=== PATIENT | female | born 1950 | race Caucasian/White ===

== ENCOUNTER 2022-11-05 11:52 | Inpatient (IN) | payer MEDICARE, OTHER ==
[2022-11-05] MEDS ORDERED: Aplisol ID ONE (14:46)
--- NOTE | 2022-11-05 18:34 | PCM.HP ---
History of Present Illness - Chief Complaint Chief Complaint: DECONDITIONING R/T CVA History of Present Illness: is a 72 year old female patient transfered from [facility] S/P acute CVA initially with dysarthria and left sided hemiparesis. Symptoms reversed with TNKase but patient had anaphylactic reaction .PMHx includes HTN,CAD,DM2,asthma,anemia,PFO. Patient will benefit from Rehab stay. - Review of Systems Constitutional: Fatigue, Weakness Eyes: No Symptoms Ears, Nose, & Throat: Hoarse (S/P anaphylactic reaction) Respiratory: Wheezing (asthma ,uses albuterol neb treatments at home regularly) Cardiac: No Symptoms Abdominal/Gastrointestinal: No Symptoms Genitourinary Symptoms: No Symptoms Musculoskeletal: Arthralgias Skin: No Symptoms Neurological: Other (residual weakness left sided) Psychological: No Symptoms, Depression Endocrine: No Symptoms Hematologic/Lymphatic: Anemia Medications & Allergies Home Medications: Home Medication List Albuterol 2.5 mg/3 ml Neb [Proventil 2.5 mg/3 ml Neb] 2.5 mg IH QID 11/05/22 [History Confirmed 11/05/22] Albuterol Common Canister [Ventolin Common Canister] 2 puff IH QIDPRN PRN 11/05/22 [History Confirmed 11/05/22] Aspirin 81 gm Chew [Baby Aspirin 81 mg Chew] 81 mg PO DAILY 11/05/22 [History Confirmed 11/05/22] Atorvastatin Calcium [Lipitor 40Mg] 40 mg PO HS 11/05/22 [History Confirmed 11/05/22] Clopidogrel Bisulfate [PLAVIX Tablet] 75 mg PO DAILY 11/05/22 [History Confirmed 11/05/22] Clopidogrel Bisulfate [Plavix] 75 mg PO DAILY 11/05/22 [History Confirmed 11/05/22] Escitalopram Oxalate [Lexapro] 10 mg PO DAILY 11/05/22 [History Confirmed 11/05/22] Fluticasone/Umeclidin/Vilanter [Trelegy Ellipta 100-62.5-25] 1 each IH DAILY 11/05/22 [History Confirmed 11/05/22] Insulin Glargine [Lantus Insulin] 35 unit SQ HS 11/05/22 [History Confirmed 11/05/22] Insulin Lispro [Humalog] 1 unit SQ ACHS 11/05/22 [History Confirmed 11/05/22] Metformin HCl 500 mg [Glucophage 500 MG] 1,000 mg PO BIDWM 11/05/22 [History Confirmed 11/05/22] Metoprolol Tartrate 25 mg [Lopressor 25MG Tab] 25 mg PO BID 11/05/22 [History Confirmed 11/05/22] Ubidecarenone [Coenzyme Q10] 200 mg PO DAILY 11/05/22 [History Confirmed 11/05/22] metOLazone [Metolazone] 2.5 mg PO WEEKLY 11/05/22 [History Confirmed 11/05/22] predniSONE [Prednisone] 10 mg PO DAILY 11/05/22 [History Confirmed 11/05/22] Amlodipine Besylate 5 mg [Norvasc 5 mg] 10 mg PO DAILY 11/06/22 [History Confirmed 11/06/22] Allergies/Adverse Reactions: Allergies Allergy/AdvReac Type Severity Reaction Status Date / Time lisinopril Allergy Severe Swelling Verified 11/05/22 22:40 of Face tenecteplase Allergy Swelling Verified 11/05/22 22:40 of Face ciprofloxacin [From Cipro] AdvReac Verified 11/05/22 22:40 - Past Medical History Neurological History: Stroke ENT History: Other (sinusitis) Cardiac History: Hypertension Respiratory History: Asthma Endocrine Medical History: Diabetes Type II Musculoskelatal History: Arthritis History: No Pertinent History - Physical Exam Vital Signs: Vital Signs - 24 hr Temp Pulse Resp BP Pulse Ox 11/05/22 17:42 98.0 F 68 18 194/77 96 11/05/22 17:00 98.0 F 68 18 194/77 96 General Appearance: no apparent distress Neurologic Exam: alert, oriented x 3, cooperative, No normal mood/affect Eye Exam: PERRL/EOMI, eyes nml inspection Ears, Nose, Throat Exam: moist mucous membranes, other (mild nasal congestion) Neck Exam: normal inspection Respiratory Exam: wheezing (scattered few eew) Gastrointestinal/Abdomen Exam: soft, normal bowel sounds (nontender) Pelvic Exam: not done Rectal Exam: not done Back Exam: other (no point tenderness) Extremity Exam: other (trace ankle edema calves soft nontender) Skin Exam: warm, dry, pale Results - Other Procedures and Tests Respiratory Therapy 11/05/22 17:45 Oxygen Nasal Cannula 3 lpm 11/06/22 07:00 Respiratory MDI ONCE Assessment/Plan (1) CVA (cerebral vascular accident) Current Visit: Yes Status: Resolved Qualifiers: Laterality of affected vessel: right Assessment & Plan: left hemiparesisi,mild residual Code(s): I63.9 - CEREBRAL INFARCTION, UNSPECIFIED (2) DM2 (diabetes mellitus, type 2) Current Visit: Yes Status: Chronic Qualifiers: Diabetes mellitus usp insulin use: with usp use (3) PFO (patent foramen ovale) Current Visit: Yes Status: Chronic Assessment & Plan: see [facility] Code(s): Q21.12 - PATENT FORAMEN OVALE (4) Anemia Current Visit: Yes Status: Acute Code(s): D64.9 - ANEMIA, UNSPECIFIED (5) HTN (hypertension) Current Visit: Yes Status: Chronic Assessment & Plan: Lisinopril was stopped after anaphylactic reaction during administration of TNKase Code(s): I10 - ESSENTIAL (PRIMARY) HYPERTENSION
[2022-11-05] MEDS ORDERED: PATIENT OWN MEDICATION IH SCH (19:00)
[2022-11-05] MEDS ORDERED: PROVENTIL 2.5 MG/3 ML NEB IH ONE (19:48)
[2022-11-05] MEDS: PROVENTIL 2.5 MG/3 ML NEB IH SCH ×2 (19:57→23:50)
[2022-11-05] MEDS: Mucinex 600MG ER Tabs PO SCH (21:26)
[2022-11-05] MEDS: Lantus Insulin SQ SCH (23:47)
[2022-11-05] MEDS: Lopressor 25MG Tab PO SCH (23:47)
[2022-11-06] MEDS ORDERED: DUONEB 0.5-3 MG/3 ml Neb IH ONE (03:39)
[2022-11-06] MEDS: PROVENTIL 2.5 MG/3 ML NEB IH SCH ×6 (04:03→22:56)
[2022-11-06] MEDS ORDERED: PROVENTIL 2.5 MG/3 ML NEB IH SCH (07:00)
[2022-11-06] MEDS ORDERED: VENTOLIN COMMON CANISTER IH SCH (07:00)
[2022-11-06] MEDS: PATIENT OWN MEDICATION IH SCH (07:23)
[2022-11-06] MEDS ORDERED: VENTOLIN COMMON CANISTER IH PRN (07:47)
[2022-11-06] MEDS ORDERED: MEDICATION INTERVENTION MC SCH (08:00)
[2022-11-06] MEDS: ECOTRIN 81 MG PO SCH (09:04)
[2022-11-06] MEDS: Lopressor 25MG Tab PO SCH ×2 (09:04→21:46)
[2022-11-06] MEDS: Mucinex 600MG ER Tabs PO SCH ×2 (09:04→21:46)
[2022-11-06] MEDS: PLAVIX Tablet PO SCH (09:04)
[2022-11-06] MEDS: Lexapro PO SCH (09:07)
[2022-11-06] MEDS: Glucophage 500 MG PO SCH ×2 (09:32→17:50)
[2022-11-06] MEDS ORDERED: UBIDECARENONE 200 MG PO SCH (10:00)
[2022-11-06] MEDS ORDERED: BABY ASPIRIN 81 MG CHEW PO SCH (10:00)
[2022-11-06] MEDS ORDERED: DELTASONE 10 MG PO SCH ×2 (10:00)
[2022-11-06] MEDS ORDERED: CEPACOL SORE THROAT LOZENGE PO PRN (12:28)
[2022-11-06] MEDS: IMODIUM 2 MG PO PRN (17:47)
[2022-11-06] MEDS: ZOCOR 20MG PO SCH (21:46)
[2022-11-06] MEDS: Lantus Insulin SQ SCH (21:47)
[2022-11-06] MEDS ORDERED: LIPITOR 40MG PO SCH (22:00)
[2022-11-06] MEDS ORDERED: Klor Con PO SCH (22:00)
[2022-11-06] MEDS: TYLENOL 325 MG PO PRN (22:28)
[2022-11-07] MEDS: PROVENTIL 2.5 MG/3 ML NEB IH SCH ×6 (03:58→23:44)
[2022-11-07 05:36] LABS: Absolute Neutrophil Ct (ANC) 9.71 x10^3/uL (1.4-6.9); BASOPHIL % 0.1 % (0.0-0.4); Basophil (Absolute #) 0.01 x10^3/uL (0-0.4); Eosinophil % 0.5 % (0.00-5.0); Eosinophil (Absolute #) 0.06 x10^3/uL (0-0.5); Hematocrit 29.5 % (35-47); Hemoglobin 8.8 g/dL (12.0-16.0); IMMATURE GRAN # 0.11 x10^3u/L (0.00-0.03); IMMATURE GRAN % 0.8 % (0.00-0.4); Lymphocyte (Absolute #) 2.43 x10^3/uL (1.0-4.6); Lymphocytes % 18.3 % (24.0-44.0); Mean Cell Volume 83.6 fL (78-100); Mean Corpuscular Hemoglobin 24.9 pg (26-32); Mean Corpuscular Hgb Concent. 29.8 g/dL (32-36); Mean Platelet Volume 11.8 fL (7.5-11.0); Monocyte (Absolute #) 0.93 x10^3/uL (0.0-1.3); Neutrophil % 73.3 % (36.0-66.0); Platelet Count 281 x10^3/uL (150-450); Red Blood Count 3.53 x10^6/uL (4.1-5.4); Red Cell Distribution Width 16.2 % (11.5-14.0); White Blood Count 13.3 x10^3/uL (4.0-10.5)
[2022-11-07 06:21] LABS: ALBUMIN 3.2 g/dL (3.5-5.0); ALKALINE PHOSPHATASE 60 U/L (38-126); ANION GAP 8.5 MEQ/L (5-15); BLOOD UREA NITROGEN 25 mg/dL (7-17); CHLORIDE 102 mmol/L (98-107); Carbon Dioxide 32 mmol/L (22-30); Cholesterol 127 mg/dL (50-200); Creatinine 1 0.95 mg/dL (0.52-1.04); EST GLOMERULAR FILTRATION RATE > 60.0 ML/MIN; Glucose 131 mg/dL (74-106); HDL CHOLESTEROL 42 mg/dL (40-60); LDL, DIRECT 55 mg/dL (30-100); Potassium 3.8 mmol/L (3.5-5.1); SGOT/AST 21 U/L (14-36); SGPT/ALT 40 U/L (0-35); SODIUM 139 mmol/L (137-145); TRIGLYCERIDE 145 mg/dL (30-150); TSH, 3RD Generation 0.361 mIU/L (0.47-4.68)
[2022-11-07] MEDS ORDERED: Klor Con PO ONE ×2 (07:04→10:15)
[2022-11-07] MEDS: PATIENT OWN MEDICATION IH SCH (07:24)
--- NOTE | 2022-11-07 09:59 | XRAY ---
Indication: Coarse wheezing lung sounds. Comparison: August 28, 2022 Portable chest demonstrates new electronic monitoring device overlying left mid chest obscuring previous calcified granuloma. No focal infiltrate, consolidation, or large effusion. Heart not enlarged again with CABG. Bony thorax intact again with osteopenia and mild degenerative changes. Impression: Continued nonacute chest with chronic features.
[2022-11-07] MEDS: Lopressor 25MG Tab PO SCH ×2 (10:02→22:10)
[2022-11-07] MEDS: Mucinex 600MG ER Tabs PO SCH ×2 (10:03→22:10)
[2022-11-07] MEDS: DELTASONE 10 MG PO SCH (10:03)
[2022-11-07] MEDS: ECOTRIN 81 MG PO SCH (10:03)
[2022-11-07] MEDS: PLAVIX Tablet PO SCH (10:03)
[2022-11-07] MEDS: Lasix 40 MG PO SCH (10:03)
[2022-11-07] MEDS: Lexapro PO SCH (10:03)
[2022-11-07] MEDS: TYLENOL 325 MG PO PRN ×2 (10:59→22:10)
[2022-11-07] MEDS: NORVASC 5 MG PO SCH (11:01)
[2022-11-07] MEDS: Glucophage 500 MG PO SCH ×2 (12:26→16:51)
[2022-11-07 15:39] LABS: NT PRO BNPII 9910 pg/mL (<300); Vitamin B12 356 pg/mL (239-931)
[2022-11-07] MEDS: IMODIUM 2 MG PO PRN (18:18)
[2022-11-07] MEDS: Lantus Insulin SQ SCH (22:10)
[2022-11-07] MEDS: ZOCOR 20MG PO SCH (22:10)
[2022-11-08] MEDS: PROVENTIL 2.5 MG/3 ML NEB IH SCH ×6 (03:20→23:12)
[2022-11-08] MEDS: PATIENT OWN MEDICATION IH SCH (06:43)
[2022-11-08] MEDS: TYLENOL 325 MG PO PRN ×2 (09:47→17:18)
[2022-11-08] MEDS: DELTASONE 10 MG PO SCH (09:47)
[2022-11-08] MEDS: Lasix 40 MG PO SCH (09:48)
[2022-11-08] MEDS: NORVASC 5 MG PO SCH (09:48)
[2022-11-08] MEDS: ECOTRIN 81 MG PO SCH (09:48)
[2022-11-08] MEDS: PLAVIX Tablet PO SCH (09:48)
[2022-11-08] MEDS: Mucinex 600MG ER Tabs PO SCH ×2 (09:48→23:20)
[2022-11-08] MEDS: Lexapro PO SCH (09:48)
[2022-11-08] MEDS: Lopressor 25MG Tab PO SCH ×2 (09:48→23:20)
[2022-11-08] MEDS: Glucophage 500 MG PO SCH ×2 (09:48→18:23)
[2022-11-08] MEDS: ZOCOR 20MG PO SCH (23:19)
[2022-11-08] MEDS: Lantus Insulin SQ SCH (23:20)
[2022-11-09] MEDS: PROVENTIL 2.5 MG/3 ML NEB IH SCH ×5 (02:19→22:00)
[2022-11-09] MEDS: PATIENT OWN MEDICATION IH SCH (08:12)
[2022-11-09] MEDS: TYLENOL 325 MG PO PRN ×2 (09:21→15:24)
[2022-11-09] MEDS: DELTASONE 10 MG PO SCH (09:22)
[2022-11-09] MEDS: Lasix 40 MG PO SCH (09:22)
[2022-11-09] MEDS: NORVASC 5 MG PO SCH (09:22)
[2022-11-09] MEDS: Mucinex 600MG ER Tabs PO SCH ×2 (09:22→22:10)
[2022-11-09] MEDS: Lexapro PO SCH (09:23)
[2022-11-09] MEDS: Lopressor 25MG Tab PO SCH ×2 (09:23→22:10)
[2022-11-09] MEDS: PLAVIX Tablet PO SCH (09:23)
[2022-11-09] MEDS: ECOTRIN 81 MG PO SCH (09:23)
[2022-11-09] MEDS: Glucophage 500 MG PO SCH ×2 (09:27→18:46)
[2022-11-09] MEDS ORDERED: Zaroxolyn 2.5 MG PO SCH (10:00)
[2022-11-09] MEDS: HUMALOG SQ PRN ×2 (18:43→22:11)
[2022-11-09] MEDS: ZOCOR 20MG PO SCH (22:10)
[2022-11-09] MEDS: Lantus Insulin SQ SCH (22:11)
[2022-11-10] MEDS ORDERED: DUONEB 0.5-3 MG/3 ml Neb IH SCH (01:00)
[2022-11-10] MEDS: PROVENTIL 2.5 MG/3 ML NEB IH SCH ×3 (07:24→18:38)
[2022-11-10] MEDS: PATIENT OWN MEDICATION IH SCH (07:27)
[2022-11-10] MEDS: Glucophage 500 MG PO SCH ×2 (08:33→17:32)
[2022-11-10] MEDS: TYLENOL 325 MG PO PRN ×2 (08:38→22:51)
[2022-11-10] MEDS: Lexapro PO SCH (09:36)
[2022-11-10] MEDS: Mucinex 600MG ER Tabs PO SCH ×2 (09:36→22:51)
[2022-11-10] MEDS: NORVASC 5 MG PO SCH (09:36)
[2022-11-10] MEDS: Lopressor 25MG Tab PO SCH ×2 (09:36→22:49)
[2022-11-10] MEDS: Lasix 40 MG PO SCH (09:36)
[2022-11-10] MEDS: PLAVIX Tablet PO SCH (09:36)
[2022-11-10] MEDS: ECOTRIN 81 MG PO SCH (09:36)
[2022-11-10] MEDS: DELTASONE 10 MG PO SCH (09:36)
--- NOTE | 2022-11-10 16:59 | PCM.NOTE ---
Date and Time: 11/10/221651 Subjective Assessment: Patient has been walking with staff and has not had dyspnea /wheezing with exertion today. Sugars have been high 441 (family brought hot fudge friday) , low= 59 and 72 - FBS. Will stay on carb controlled diet and off the sweets. Lantus reduced from 35 to 20 units.Sliding scale reduced from moderated to low.. Objective Exam General Appearance: no apparent distress Neurologic Exam: alert, oriented x 3, cooperative, normal mood/affect, nml cerebellar function Skin Exam: warm, dry, pale Respiratory Exam: normal breath sounds (on O2 2L/NC) Cardiovascular Exam: regular rate/rhythm Gastrointestinal/Abdomen Exam: normal bowel sounds Extremity Exam: other (all extremities normally ,has some weakness LLE compared to RLE) OBJECTIVE DATA Vital Signs: Vital Signs - 24 hr Temp Pulse Resp BP Pulse Ox 11/10/22 13:57 77 18 146/65 97 11/10/22 13:31 77 18 96 11/10/22 07:27 68 18 99 11/10/22 07:25 97.6 F 40 L 16 147/60 98 11/09/22 22:02 92 H 18 99 11/09/22 20:00 98.4 F 55 L 18 138/65 93 L 11/09/22 17:58 78 16 96 Pain Assessment - Last Documented Pain Intensity 0 Pain Scale Used 0-10 Pain Scale Intake and Output: Intake & Output 11/08/22 11/09/22 11/10/22 11/11/22 11:59 11:59 11:59 11:59 Intake Total 540 240 340 Balance 540 240 340 Weight 108.4 kg 108.4 kg 108.3 kg Lab Results: Lab Results-Last 24 Hours 11/09/22 11/09/22 11/10/22 Range/Units 18:35 21:22 07:11 POC Glucometer 441 H 376 H 59 L (74 to 106) mg/dL 11/10/22 11/10/22 Range/Units 07:47 16:28 POC Glucometer 106 301 H (74 to 106) mg/dL Assessment/Plan (1) CVA (cerebral vascular accident) Status: Resolved Qualifiers: Laterality of affected vessel: right Code(s): I63.9 - CEREBRAL INFARCTION, UNSPECIFIED (2) DM2 (diabetes mellitus, type 2) Status: Chronic Qualifiers: Diabetes mellitus usp insulin use: with usp use (3) PFO (patent foramen ovale) Status: Chronic Code(s): Q21.12 - PATENT FORAMEN OVALE (4) Anemia Status: Acute Code(s): D64.9 - ANEMIA, UNSPECIFIED (5) HTN (hypertension) Status: Chronic Code(s): I10 - ESSENTIAL (PRIMARY) HYPERTENSION (6) Aneurysm Status: Acute Assessment & Plan: fusiform aneurysm brain-Neurosurgeon appt was jose as outpatient when patient was dischared from [place] with the acute CVA Code(s): I72.9 - ANEURYSM OF UNSPECIFIED SITE
[2022-11-10] MEDS: HUMALOG SQ PRN ×2 (17:32→22:50)
[2022-11-10] MEDS: ZOCOR 20MG PO SCH (22:51)
[2022-11-10] MEDS: Lantus Insulin SQ SCH (22:51)
[2022-11-11] MEDS: PROVENTIL 2.5 MG/3 ML NEB IH SCH ×4 (01:06→19:20)
[2022-11-11] MEDS: PATIENT OWN MEDICATION IH SCH (07:27)
[2022-11-11] MEDS: TYLENOL 325 MG PO PRN ×2 (10:01→21:50)
[2022-11-11] MEDS: Lexapro PO SCH (10:01)
[2022-11-11] MEDS: DELTASONE 10 MG PO SCH (10:01)
[2022-11-11] MEDS: ECOTRIN 81 MG PO SCH (10:01)
[2022-11-11] MEDS: Lasix 40 MG PO SCH (10:01)
[2022-11-11] MEDS: Mucinex 600MG ER Tabs PO SCH ×2 (10:01→21:46)
[2022-11-11] MEDS: Lopressor 25MG Tab PO SCH ×2 (10:02→21:45)
[2022-11-11] MEDS: Glucophage 500 MG PO SCH ×2 (10:02→18:02)
[2022-11-11] MEDS: NORVASC 5 MG PO SCH (10:02)
[2022-11-11] MEDS: PLAVIX Tablet PO SCH (10:02)
[2022-11-11] MEDS: Lantus Insulin SQ SCH (21:45)
[2022-11-11] MEDS: ZOCOR 20MG PO SCH (21:46)
[2022-11-12] MEDS: PROVENTIL 2.5 MG/3 ML NEB IH SCH ×3 (01:00→12:57)
[2022-11-12] MEDS ORDERED: DUONEB 0.5-3 MG/3 ml Neb IH ONE (06:38)
[2022-11-12 07:20] VITALS: BP 153/62; O2SAT 97
[2022-11-12] MEDS: Mucinex 600MG ER Tabs PO SCH (08:49)
[2022-11-12] MEDS: Lopressor 25MG Tab PO SCH (08:50)
[2022-11-12] MEDS: Lasix 40 MG PO SCH (08:51)
[2022-11-12] MEDS: Glucophage 500 MG PO SCH (08:51)
[2022-11-12] MEDS: NORVASC 5 MG PO SCH (08:51)
[2022-11-12] MEDS: ECOTRIN 81 MG PO SCH (08:52)
[2022-11-12] MEDS: DELTASONE 10 MG PO SCH (08:52)
[2022-11-12] MEDS: Lexapro PO SCH (08:53)
[2022-11-12] MEDS: PLAVIX Tablet PO SCH (08:53)
[2022-11-12 13:01] VITALS: PULSE 48
--- NOTE | 2022-11-12 15:58 | PCM.DCORD ---
- Discharge Disposition: Home, Self-Care Condition: Stable Prescriptions: New Amlodipine Besylate 5 mg [Norvasc 5 mg] 10 mg PO DAILY #90 tablet Glipizide 10 mg [Glucotrol 10 MG] 10 mg PO BID #60 tablet Potassium Chloride [Klor-Con 10] 10 meq PO DAILY #90 tablet Furosemide 20 mg [Lasix 20 mg] 0 mg PO DAILY #90 tablet Continue Metformin HCl 500 mg [Glucophage 500 MG] 1,000 mg PO BIDWM Escitalopram Oxalate [Lexapro] 10 mg PO DAILY Clopidogrel Bisulfate [PLAVIX Tablet] 75 mg PO DAILY Aspirin 81 gm Chew [Baby Aspirin 81 mg Chew] 81 mg PO DAILY predniSONE [Prednisone] 10 mg PO DAILY metOLazone [Metolazone] 2.5 mg PO WEEKLY Ubidecarenone [Coenzyme Q10] 200 mg PO DAILY Insulin Lispro [Humalog] 1 unit SQ ACHS Insulin Glargine [Lantus Insulin] 35 unit SQ HS Fluticasone/Umeclidin/Vilanter [Trelegy Ellipta 100-62.5-25] 1 each IH DAILY Albuterol Common Canister [Ventolin Common Canister] 2 puff IH QIDPRN PRN PRN Reason: Shortness Of Breath Albuterol 2.5 mg/3 ml Neb [Proventil 2.5 mg/3 ml Neb] 2.5 mg IH QID Amlodipine Besylate 5 mg [Norvasc 5 mg] 10 mg PO DAILY Atorvastatin Calcium [Lipitor 40Mg] 40 mg PO HS #90 tablet Metoprolol Tartrate 25 mg [Lopressor 25MG Tab] 25 mg PO BID #30 Clopidogrel Bisulfate [Plavix] 75 mg PO DAILY #90 tablet Outpatient Orders: Physical Therapy Eval & Treat Facility: [facility], Location: PHYSICAL THERAPY Instructions: Stroke Additional Instructions: Follow up with Dr.Bradley Lerma [phone]. ` YOU HAVE AN APT. WITH PHYSICAL THERAPY 11/14 @3 PM Follow up with: SWAPNIL YOUNG MD [CONSULTING PHYSICIAN] - 12/11/22 4:00 pm ([facility]) RUBÉN GIBSON DO [Primary Care Provider] - 11/19/22 2:00 pm Forms: Discharge Instructions
--- NOTE | 2022-11-20 08:35 | PCM.DS ---
Discharge Summary Date of Admission: 11/05/22 16:47 Date of Discharge: 11/12/22 Admitting Physician: RUBÉN GIBSON DO Primary Care Provider: RUBÉN GIBSON DO Allergies Allergies lisinopril Allergy (Severe, Verified 11/05/22 22:40) Swelling of Face tenecteplase Allergy (Verified 11/05/22 22:40) Swelling of Face ciprofloxacin [From Cipro] Adverse Reaction (Verified 11/05/22 22:40) Hospital Summary - Hospital Course Hospital Course: Patient is a 72 yr old lady with IDDM2 ,HTN and O2 dependent COPD who was admitted to Swing bed /rehab from [facility] S/P acute CVA . She was treated with kinase and most of the left hemiparesis resolved. During her short rehab stay patient returned to her baseline of ADL other than residual fatigue. Sergei christine lives at home with her . Please see discharge meds and orders for follow up details. - Vitals & Intake/Output Vital Signs: Vital Signs Temperature 97.1 F 11/12/22 07:00 Pulse Rate 48 L 11/12/22 12:59 Respiratory Rate 18 11/12/22 07:00 Blood Pressure 153/62 11/12/22 07:00 O2 Sat by Pulse Oximetry 97 11/12/22 12:59 - Lab Result Diagrams: 11/07/22 04:33 11/07/22 04:33 - Procedures and Test Procedures and Tests throughout Hospitalization: Therapy Orders & Screens 11/05/22 14:52 PT Eval & Treat (MD Order) ONCE Reason for Eval:: WEAKNESS, POST CVA Diagnosis: DECONDITIONING R/T CVA 11/05/22 14:55 OT Eval and Treat (MD Order) ROUTINE Comment: SWINGBED Physician Instructions: Reason For Exam: S/P CVA 11/05/22 17:45 Oxygen Nasal Cannula 3 lpm Comment: Diagnosis: DECONDITIONING R/T CVA 11/05/22 18:45 RT Screen per Nursing Assess ONCE Comment: Protocol Order Physician Instructions: Greater than 3 points order RT Admission Screen Reason For Exam: Triggered on Admission Diagnosis: DECONDITIONING R/T CVA Diagnosis: DECONDITIONING R/T CVA Pneumonia: No Home O2: Yes Asthma: No CHF: No Home CPAP/BIPAP: Yes Home Nebs/MDI: Yes Total Points: 15 11/05/22 19:52 Respiratory Therapy Assessment DAILY Comment: Diagnosis: DECONDITIONING R/T CVA 11/06/22 07:00 Respiratory MDI ONCE Comment: Diagnosis: DECONDITIONING R/T CVA 11/06/22 10:19 PT Clarification Order ROUTINE Comment: Physician Instructions: Reason For Exam: PT Clarification: P.T. TO RX 5-6X/WK UNTIL D/C TO ADDRESS FUNCTIONAL MOBILITY AND GAIT TRAINING, THER EX, BALANCE AND ENDURANCE ACTIVITIES, WELL PT. ED. RE: HEP AND PROPER BREATHING/ENERGY CONSERVATION TO MAXIMIZE FUNCTIONAL POTENTIAL FOR D/C HOME. 11/06/22 17:40 OT Clarification Order ROUTINE Comment: Physician Instructions: Reason For Exam: OT Clarification: OT SERVICES TO TX 5-6X/WK TO ADDRESS ADL AND FUNCTIONAL MOBILITY RETRAINING, THERAPUETIC EXERCISES AND ACTIVITIES, A.E./DME TRAINING, DIAPRAGMATIC BREATHING EXERCISES, ENERGY CONSERVATION/WORK SIMPLIFICATION STRATEGIES ALL TO MAXIMIZE OVERALL INDEPENDENCE TO RETURN TO HOME WITH SPOUSE AT [facility]. Discharge Exam General Appearance: no apparent distress Neurologic Exam: alert, oriented x 3, cooperative, maintenance representative II-XII nml as tested, normal mood/affect, nml cerebellar function, nml station & gait Eye Exam: eyes nml inspection Ears, Nose, Throat Exam: normal ENT inspection Neck Exam: normal inspection Respiratory Exam: normal breath sounds Cardiovascular Exam: regular rate/rhythm Gastrointestinal/Abdomen Exam: soft (nontender) Back Exam: normal inspection Extremity Exam: other (normal movement of all extremities , LLE slight weakness against resistance when compaired to the right) Final Diagnosis/Problem List - Final Discharge Diagnosis/Problem (1) CVA (cerebral vascular accident) Status: Resolved Code(s): I63.9 - CEREBRAL INFARCTION, UNSPECIFIED (2) DM2 (diabetes mellitus, type 2) Status: Chronic Assessment & Plan: avoid sweets (3) PFO (patent foramen ovale) Status: Chronic Assessment & Plan: incidental finding on admission to [facility] for CVA- no treatment advised at [place] Code(s): Q21.12 - PATENT FORAMEN OVALE (4) Anemia Status: Acute Assessment & Plan: monitor H/H ,is on Plavix and ASA Code(s): D64.9 - ANEMIA, UNSPECIFIED (5) HTN (hypertension) Status: Chronic Code(s): I10 - ESSENTIAL (PRIMARY) HYPERTENSION (6) Aneurysm Status: Acute Code(s): I72.9 - ANEURYSM OF UNSPECIFIED SITE - Discharge Disposition: Home, Self-Care Condition: Stable Prescriptions: New Amlodipine Besylate 5 mg [Norvasc 5 mg] 10 mg PO DAILY #90 tablet Glipizide 10 mg [Glucotrol 10 MG] 10 mg PO BID #60 tablet Potassium Chloride [Klor-Con 10] 10 meq PO DAILY #90 tablet Furosemide 20 mg [Lasix 20 mg] 0 mg PO DAILY #90 tablet Continue Metformin HCl 500 mg [Glucophage 500 MG] 1,000 mg PO BIDWM Escitalopram Oxalate [Lexapro] 10 mg PO DAILY Clopidogrel Bisulfate [PLAVIX Tablet] 75 mg PO DAILY Aspirin 81 gm Chew [Baby Aspirin 81 mg Chew] 81 mg PO DAILY predniSONE [Prednisone] 10 mg PO DAILY metOLazone [Metolazone] 2.5 mg PO WEEKLY Ubidecarenone [Coenzyme Q10] 200 mg PO DAILY Insulin Lispro [Humalog] 1 unit SQ ACHS Insulin Glargine [Lantus Insulin] 35 unit SQ HS Fluticasone/Umeclidin/Vilanter [Trelegy Ellipta 100-62.5-25] 1 each IH DAILY Albuterol Common Canister [Ventolin Common Canister] 2 puff IH QIDPRN PRN PRN Reason: Shortness Of Breath Albuterol 2.5 mg/3 ml Neb [Proventil 2.5 mg/3 ml Neb] 2.5 mg IH QID Amlodipine Besylate 5 mg [Norvasc 5 mg] 10 mg PO DAILY Atorvastatin Calcium [Lipitor 40Mg] 40 mg PO HS #90 tablet Metoprolol Tartrate 25 mg [Lopressor 25MG Tab] 25 mg PO BID #30 Clopidogrel Bisulfate [Plavix] 75 mg PO DAILY #90 tablet Outpatient Orders: Physical Therapy Eval & Treat Facility: [facility], Location: PHYSICAL THERAPY Instructions: Stroke Additional Instructions: Follow up with Dr.Bradley Lerma [phone]. ` YOU HAVE AN APT. WITH PHYSICAL THERAPY 11/14 @3 PM Follow up with: SWAPNIL YOUNG MD [CONSULTING PHYSICIAN] - 12/11/22 4:00 pm ([facility]) RUBÉN GIBSON DO [Primary Care Provider] - 11/19/22 2:00 pm GLADYS ALONZO DO [NON-STAFF PHY W/O PRIVILEGES] - (Sending referral. Office will call patient for scheduling.) Forms: Discharge Instructions
== END 2022-11-12 16:36 | disposition home or self-care (01) | DRG 65 ==
LOC: EDSTATUS 13:47 → MED SURG 16:47
PROVIDERS: ADMIT Family Medicine; ATTEND Family Medicine
DX: I63.9 Cerebral infarction, unspecified (principal); Q21.12 Patent foramen ovale; E11.9 Type 2 diabetes mellitus without complications; D64.9 Anemia, unspecified; I10 Essential (primary) hypertension; I25.10 Atherosclerotic heart disease of native coronary artery without angina pectoris; Z79.01 Long term (current) use of anticoagulants; Z79.899 Other long term (current) drug therapy; Z20.828 Contact with and (suspected) exposure to other viral communicable diseases; Z99.81 Dependence on supplemental oxygen
CPT/HCPCS: 36415; 71045; 80053; 80061; 82607; 82947; 83036; 83721; 83880; 84443; 85025; 93268; 94640; 94760; J1817; J7609; 97110-GP; A9270-GY; G0378

== ENCOUNTER 2022-12-11 10:34 | Emergency (ER) | payer MEDICARE, OTHER ==
--- NOTE | 2022-12-11 11:15 | ERPHSYRPT ---
- History of Present Illness Time Seen by Provider: 12/11/22 10:40 Source: patient Exam Limitations: no limitations Patient Subjective Stated Complaint: pt had labs done this morning and her potassium is low and was instructed by Dr. Urena to come in Triage Nursing Assessment: Pt brought to the ER by her daughter, hypertensive, rates head pain as 01/20, pt had been diagnosed with cellulitis on the lower left leg from [facility] last week and has been on Doxycycline and now the right lower leg has some redness to it now, pt has not been eating much and has lost approx 22 lbs in the past 2 weeks, pulses are normal, skin is pale, pt appears tired, her blood sugar was 44 at the time of her blood draw this morning but did eat afterwards and did get it up, no difficulty breathing, doesn't appear to be in any distress Physician History: Patient sent from outpatient lab for a potassium of 2.8. Per the daughter patient has had a 22 pound weight loss over the last 2 weeks. Patient has not been feeling well. Patient was seen at [facility] placed on doxycycline for left lower leg cellulitis. Daughter states that this has somewhat improved. States it is no longer "hot and angry", is still slightly red. Allergies/Adverse Reactions: lisinopril Allergy (Severe, Verified 12/11/22 11:08) Swelling of Face tenecteplase Allergy (Verified 12/11/22 11:08) Swelling of Face ciprofloxacin [From Cipro] Adverse Reaction (Verified 12/11/22 11:08) Home Medications: Albuterol 2.5 mg/3 ml Neb [Proventil 2.5 mg/3 ml Neb] 2.5 mg IH QID 11/05/22 [History] Albuterol Common Canister [Ventolin Common Canister] 2 puff IH QIDPRN PRN 11/05/22 [History] Aspirin 81 gm Chew [Baby Aspirin 81 mg Chew] 81 mg PO DAILY 11/05/22 [History] Escitalopram Oxalate [Lexapro] 10 mg PO DAILY 11/05/22 [History] Fluticasone/Umeclidin/Vilanter [Trelegy Ellipta 100-62.5-25] 1 each IH DAILY 11/05/22 [History] Insulin Glargine [Lantus Insulin] 30 unit SQ HS 11/05/22 [History] Metformin HCl 500 mg [Glucophage 500 MG] 1,000 mg PO BIDWM 11/05/22 [History] Ubidecarenone [Coenzyme Q10] 200 mg PO DAILY 11/05/22 [History] metOLazone [Metolazone] 2.5 mg PO WEEKLY 11/05/22 [History] Amlodipine Besylate 5 mg [Norvasc 5 mg] 10 mg PO DAILY 11/06/22 [History] Cyanocobalamin 1000 Mcg/ml [Cyanocobalamin B-12 1000 MCG/ML] 1,000 mcg SQ UD 12/11/22 [History] Furosemide 20 mg [Lasix 20 mg] 40 mg PO DAILY 12/11/22 [History] Omeprazole 20 mg PO DAILY 12/11/22 [History] Ondansetron [Ondansetron Odt] 4 mg PO BID PRN 12/11/22 [History] Potassium Chloride [Klor-Con 10] 20 meq PO DAILY 12/11/22 [History] Hx Influenza Vaccination/Date Given: Yes Hx Pneumococcal Vaccination/Date Given: Yes Immunizations Up to Date: Yes Travel Risk - International Travel Have you traveled outside of the country in past 3 weeks: No - Coronavirus Screening Are you exhibiting any of the following symptoms?: No Close contact with a COVID-19 positive Pt in past 14-21 Days: No - Vaccine Status Have you recieved a Covid-19 vaccination: Yes [employer]: Moderna - Vaccination Dates Date of 2cond Vaccination (if applicable): 10/2021 - Review of Systems Constitutional: Weakness, Weight Loss, No Fever, No Chills Eyes: No Symptoms Ears, Nose, & Throat: No Symptoms Respiratory: No Cough, No Dyspnea Cardiac: No Chest Pain, No Edema, No Syncope Abdominal/Gastrointestinal: No Abdominal Pain, No Nausea, No Vomiting, No Diarrhea Genitourinary Symptoms: No Dysuria Musculoskeletal: No Back Pain, No Neck Pain Skin: No Rash Neurological: Headache, No Dizziness, No Focal Weakness, No Sensory Changes Psychological: No Symptoms Endocrine: No Symptoms All Other Systems: Reviewed and Negative - Past Medical History Pertinent Past Medical History: Yes Neurological History: Stroke ENT History: Other Cardiac History: Coronary Artery Disease, High Cholesterol Respiratory History: COPD Endocrine Medical History: Diabetes Type II Musculoskeletal History: No Pertinent History GI Medical History: No Pertinent History History: No Pertinent History Psycho-Social History: Depression Female Reproductive Disorders: No Pertinent History - Past Surgical History Past Surgical History: Yes Neuro Surgical History: No Pertinent History Cardiac: CABG, Cardiac Catheterization Gastrointestinal: Appendectomy Genitourinary: No Pertinent History Musculoskeletal: No Pertinent History Female Surgical History: Hysterectomy - Social History Smoking Status: Former smoker Exposure to second hand smoke: No Drug Use: none Patient Lives Alone: No - Nursing Vital Signs Nursing Vital Signs: Initial Vital Signs Temperature 98.1 F 12/11/22 10:48 Pulse Rate 85 12/11/22 10:48 Respiratory Rate 24 12/11/22 10:48 Blood Pressure 151/71 12/11/22 10:48 O2 Sat by Pulse Oximetry 98 12/11/22 10:48 Pain Scale Pain Intensity 7 - Physical Exam General Appearance: no apparent distress, alert Eye Exam: PERRL/EOMI, eyes nml inspection Ears, Nose, Throat Exam: normal ENT inspection, pharynx normal, moist mucous m embranes Neck Exam: normal inspection, non-tender, supple, full range of motion Respiratory Exam: normal breath sounds, lungs clear, No respiratory distress Cardiovascular Exam: regular rate/rhythm, normal heart sounds, normal peripheral pulses Gastrointestinal/Abdomen Exam: soft, normal bowel sounds, No tenderness, No mass Back Exam: normal inspection, normal range of motion, No CVA tenderness, No vertebral tenderness Extremity Exam: normal inspection, normal range of motion, pelvis stable, other (No obvious cellulitis on my exam. Area of redness appears to be improving per daughter) Neurologic Exam: alert, oriented x 3, cooperative, normal mood/affect, nml cerebellar function, nml station & gait, sensation nml, No motor deficits Skin Exam: normal color, warm, dry, No rash Lymphatic Exam: No adenopathy SpO2: 98 Ordered Tests: Active Orders 24 hr Category Date Time Status EKG-ER Only STAT Care 12/11/22 11:02 Completed IV Insertion STAT Care 12/11/22 11:02 Completed Telemetry q4h Care 12/11/22 12:19 Completed CHEST 1 VIEW (PORTABLE) Stat Exams 12/11/22 11:02 Completed CBC W DIFF Stat Lab 12/11/22 11:33 Completed CMP Stat Lab 12/11/22 11:33 Completed LIPASE Stat Lab 12/11/22 11:33 Completed NT PRO BNPII Stat Lab 12/11/22 11:33 Completed PROCALCITONIN Stat Lab 12/11/22 11:33 Completed TROPONIN Q4H Lab 12/11/22 11:33 Completed TROPONIN Q4H Lab 12/11/22 15:06 Received UA W/RFX UR CULTURE Stat Lab 12/11/22 13:34 Completed Medication Summary Discontinued Medications Generic Name Dose Route Start Last Admin Trade Name Freq PRN Reason Stop Dose Admin Potassium Chloride 20 meq in 100 mls @ 50 mls/hr 12/11/22 12:19 12/11/22 12:53 Potassium Chloride 20 Meq In Water 100ml IV 12/11/22 14:18 50 mls/hr STAT ONE Administration Potassium Chloride Confirm 12/11/22 12:51 Potassium Chloride 20 Meq In Water 100ml Administered 12/11/22 12:52 Dose 100 mls @ ud IV .STK-MED ONE Sodium Chloride Confirm 12/11/22 12:58 Sodium Chloride 0.9% 500 Ml Administered 12/11/22 12:59 Dose 500 mls @ ud IV .STK-MED ONE Sodium Chloride 500 mls @ 100 mls/hr 12/11/22 13:00 12/11/22 13:00 Sodium Chloride 0.9% 500 Ml IV 01/10/23 12:59 100 mls/hr .Q5H KIKO Administration Potassium Chloride 20 meq 12/11/22 12:19 12/11/22 12:52 Potassium Chloride Tab 10 Meq Tab PO 12/11/22 12:20 20 meq STAT ONE Administration Potassium Chloride Confirm 12/11/22 12:51 Potassium Chloride Tab 10 Meq Tab Administered 12/11/22 12:52 Dose 20 meq PO .STK-MED ONE Lab/Rad Data: Laboratory Result Diagrams 12/11/22 11:33 12/11/22 11:33 Laboratory Results 12/11/22 12/11/22 12/11/22 Range/Units 13:34 11:33 11:33 WBC (4.0-10.5) x10^3/uL RBC (4.1-5.4) x10^6/uL Hgb (12.0-16.0) g/dL Hct (35-47) % MCV (78-100) fL MCH (26-32) pg MCHC (32-36) g/dL RDW (11.5-14.0) % Plt Count (150-450) x10^3/uL MPV (7.5-11.0) fL Gran % (36.0-66.0) % Immature Gran % (Auto) (0.00-0.4) % Nucleat RBC Rel Count (0.00-0.1) % Eos # (Auto) (0-0.5) x10^3/uL Immature Gran # (Auto) (0.00-0.03) x10^3u/L Absolute Lymphs (auto) (1.0-4.6) x10^3/uL Absolute Monos (auto) (0.0-1.3) x10^3/uL Absolute Nucleated RBC (0.00-0.01) x10^3u/L Lymphocytes % (24.0-44.0) % Monocytes % (0.0-12.0) % Eosinophils % (0.00-5.0) % Basophils % (0.0-0.4) % Absolute Granulocytes (1.4-6.9) x10^3/uL Basophils # (0-0.4) x10^3/uL Sodium 133 L (137-145) mmol/L Potassium 3.1 L (3.5-5.1) mmol/L Chloride 87 L (98-107) mmol/L Carbon Dioxide 33 H (22-30) mmol/L Anion Gap 15.9 H (5-15) MEQ/L BUN 17 (7-17) mg/dL Creatinine 1.22 H (0.52-1.04) mg/dL Estimated GFR 46.3 ML/MIN Glucose 147 H (74-106) mg/dL Calcium 7.1 L (8.4-10.2) mg/dL Total Bilirubin 0.70 (0.2-1.3) mg/dL AST 30 (14-36) U/L ALT 17 (0-35) U/L Alkaline Phosphatase 71 (38-126) U/L Troponin I < 0.012 (0.000-0.034) ng/mL NT-Pro-B Natriuret Pep 366 (<300) pg/mL Serum Total Protein 7.0 (6.3-8.2) g/dL Albumin 3.7 (3.5-5.0) g/dL Lipase 81 (23-300) U/L Procalcitonin 0.103 H (0.030-0.080) ng/mL Urine Color Yellow (Yellow) Urine Appearance Clear (Clear) Urine pH 6.0 (4.6-8.0) Ur Specific [place] <=1.005 (1.005-1.030) Urine Protein Negative (Negative) Urine Glucose (UA) Negative (Negative) mg/dL Urine Ketones Negative (Negative) Urine Blood Negative (Negative) Urine Nitrite Negative (Negative) Urine Bilirubin Negative (Negative) Urine Urobilinogen 0.2 (0.2) mg/dL Ur Leukocyte Esterase Negative (Negative) U Hyaline Cast (Auto) NONE SEEN (0-2) /LPF Urine Microscopic RBC 0-2 (0-5) /HPF Urine Microscopic WBC 0-2 (0-5) /HPF Ur Epithelial Cells Rare (None Seen) /HPF Urine Bacteria None Seen (None Seen) /HPF Urine Culture Reflexed NO (NO) Influenza Type A Ag (NEGATIVE) Influenza Type B Ag (NEGATIVE) RSV (PCR) (NEGATIVE) SARS-CoV-2 (PCR) (NEGATIVE) 12/11/22 12/11/22 Range/Units 11:33 11:13 WBC 8.9 (4.0-10.5) x10^3/uL RBC 3.57 L (4.1-5.4) x10^6/uL Hgb 8.8 L (12.0-16.0) g/dL Hct 28.3 L (35-47) % MCV 79.3 (78-100) fL MCH 24.6 L (26-32) pg MCHC 31.1 L (32-36) g/dL RDW 15.9 H (11.5-14.0) % Plt Count 292 (150-450) x10^3/uL MPV 10.6 (7.5-11.0) fL Gran % 69.3 H (36.0-66.0) % Immature Gran % (Auto) 0.3 (0.00-0.4) % Nucleat RBC Rel Count 0.0 (0.00-0.1) % Eos # (Auto) 0.07 (0-0.5) x10^3/uL Immature Gran # (Auto) 0.03 (0.00-0.03) x10^3u/L Absolute Lymphs (auto) 1.97 (1.0-4.6) x10^3/uL Absolute Monos (auto) 0.63 (0.0-1.3) x10^3/uL Absolute Nucleated RBC 0.00 (0.00-0.01) x10^3u/L Lymphocytes % 22.2 L (24.0-44.0) % Monocytes % 7.1 (0.0-12.0) % Eosinophils % 0.8 (0.00-5.0) % Basophils % 0.3 (0.0-0.4) % Absolute Granulocytes 6.13 (1.4-6.9) x10^3/uL Basophils # 0.03 (0-0.4) x10^3/uL Sodium (137-145) mmol/L Potassium (3.5-5.1) mmol/L Chloride (98-107) mmol/L Carbon Dioxide (22-30) mmol/L Anion Gap (5-15) MEQ/L BUN (7-17) mg/dL Creatinine (0.52-1.04) mg/dL Estimated GFR ML/MIN Glucose (74-106) mg/dL Calcium (8.4-10.2) mg/dL Total Bilirubin (0.2-1.3) mg/dL AST (14-36) U/L ALT (0-35) U/L Alkaline Phosphatase (38-126) U/L Troponin I (0.000-0.034) ng/mL NT-Pro-B Natriuret Pep (<300) pg/mL Serum Total Protein (6.3-8.2) g/dL Albumin (3.5-5.0) g/dL Lipase (23-300) U/L Procalcitonin (0.030-0.080) ng/mL Urine Color (Yellow) Urine Appearance (Clear) Urine pH (4.6-8.0) Ur Specific [place] (1.005-1.030) Urine Protein (Negative) Urine Glucose (UA) (Negative) mg/dL Urine Ketones (Negative) Urine Blood (Negative) Urine Nitrite (Negative) Urine Bilirubin (Negative) Urine Urobilinogen (0.2) mg/dL Ur Leukocyte Esterase (Negative) U Hyaline Cast (Auto) (0-2) /LPF Urine Microscopic RBC (0-5) /HPF Urine Microscopic WBC (0-5) /HPF Ur Epithelial Cells (None Seen) /HPF Urine Bacteria (None Seen) /HPF Urine Culture Reflexed (NO) Influenza Type A Ag NEGATIVE (NEGATIVE) Influenza Type B Ag NEGATIVE (NEGATIVE) RSV (PCR) NEGATIVE (NEGATIVE) SARS-CoV-2 (PCR) NEGATIVE (NEGATIVE) - Progress Progress: improved Progress Note: 12/11/22 15:34 I was able to review this morning labs. Patient's potassium is 2.8. Repeat lab was 3.1. We will replace patient's potassium here with IV and oral. Overall, other labs appear to be chronic and change. No obvious elevation of troponin, EKG changes. Chest x-ray is clear. Patient did complain of a headache. Normal neurological exam with previous imaging of her head. Per her daughter, the anemia is chronic, headache chronic. Patient's 20 pound weight loss is in relation to a recent ICU stay last month. Patient continues to have some deconditioning from this. No obvious emergency today. Patient was able to ambulate without difficulty. Procalcitonin was slightly elevated. However she recently completed a course of doxycycline for cellulitis. No cellulitis on my exam. It appears improved. Given all of this I did discuss going home versus admission here. I attempted to call patient's PCP Dr. Bentley. She was not in the office today. Therefore, patient has follow-up in [address] Bentley. We will discharge patient home until that follow-up. Patient also has follow-up with cardiology this afternoon. She will be discharged in time to make that appointment. She may return here sooner for any new or changing symptoms. Patient's adult daughter is in the room and was present for all discussions. I did answer all her questions to the best my ability. Counseled pt/family regarding: lab results, diagnosis, need for follow-up, rad results Medical Desision Making - Independent Historian Additional History obtained from: Child - External Record(s) Reviewed Records reviewed as a part of evaluation & management: Discharge Summary - Diagnostic Testing Diagnostic test were ordered, analyzed, and reviewed by me: Yes Radiological Interpretation: Reviewed by me - Risk of complications Minimal Risk: Minimal risk of morbidity - Departure Departure Disposition: Home Clinical Impression: Abnormal laboratory test result, Low serum potassium Condition: Stable Critical Care Time: No Referrals: RUBÉN URENA DO [Primary Care Provider] - Follow up/PCP as directed Instructions: Hypokalemia (DC) Additional Instructions: Follow-up with your PCP in 24 to 48 hours for reexam. You may return here sooner for new or changing symptoms.
--- NOTE | 2022-12-11 11:34 | XRAY ---
Indication: Pneumonia. Low potassium. Comparison: August 28 and November 07, 2022 Portable chest again demonstrates minimal left midlung subsegmental atelectasis/scarring and small calcified granuloma. No focal infiltrate, consolidation, or large effusion. Heart not enlarged again with CABG. Bony thorax intact again with osteopenia and mild degenerative changes. Impression: Continued nonacute chest with chronic features.
[2022-12-11 11:38] LABS: Absolute Neutrophil Ct (ANC) 6.13 x10^3/uL (1.4-6.9); BASOPHIL % 0.3 % (0.0-0.4); Basophil (Absolute #) 0.03 x10^3/uL (0-0.4); Eosinophil % 0.8 % (0.00-5.0); Eosinophil (Absolute #) 0.07 x10^3/uL (0-0.5); Hematocrit 28.3 % (35-47); Hemoglobin 8.8 g/dL (12.0-16.0); IMMATURE GRAN # 0.03 x10^3u/L (0.00-0.03); IMMATURE GRAN % 0.3 % (0.00-0.4); Lymphocyte (Absolute #) 1.97 x10^3/uL (1.0-4.6); Lymphocytes % 22.2 % (24.0-44.0); Mean Cell Volume 79.3 fL (78-100); Mean Corpuscular Hemoglobin 24.6 pg (26-32); Mean Corpuscular Hgb Concent. 31.1 g/dL (32-36); Mean Platelet Volume 10.6 fL (7.5-11.0); Monocyte (Absolute #) 0.63 x10^3/uL (0.0-1.3); Monocytes % 7.1 % (0.0-12.0); Neutrophil % 69.3 % (36.0-66.0); Platelet Count 292 x10^3/uL (150-450); Red Blood Count 3.57 x10^6/uL (4.1-5.4); Red Cell Distribution Width 15.9 % (11.5-14.0); White Blood Count 8.9 x10^3/uL (4.0-10.5)
[2022-12-11 11:52] LABS: INFLUENZA A NEGATIVE (NEGATIVE); INFLUENZA B NEGATIVE (NEGATIVE); RESPIRATORY SYNCTIAL VIRUS NEGATIVE (NEGATIVE); SARS-CoV-2 Xpert Express NEGATIVE (NEGATIVE)
[2022-12-11 12:14] LABS: ALBUMIN 3.7 g/dL (3.5-5.0); ANION GAP 15.9 MEQ/L (5-15); BILIRUBIN,TOTAL 0.7 mg/dL (0.2-1.3); Calcium 7.1 mg/dL (8.4-10.2); Creatinine 1 1.22 mg/dL (0.52-1.04); EST GLOMERULAR FILTRATION RATE 46.3 ML/MIN; PROCALCITONIN 0.103 ng/mL (0.030-0.080); Potassium 3.1 mmol/L (3.5-5.1)
[2022-12-11] MEDS ORDERED: POTASSIUM CHLORIDE 20 mEq IN WATER 100ML 20 MEQ/100 ML BAG IV ONE (12:19)
[2022-12-11] MEDS ORDERED: Klor Con PO ONE ×2 (12:19→12:51)
[2022-12-11] MEDS ORDERED: POTASSIUM CHLORIDE 20 mEq IN WATER 100ML 100 ML IV ONE (12:51)
[2022-12-11] MEDS ORDERED: Sodium Chloride 0.9% 500 ML 500 ML IV ONE (12:58)
[2022-12-11] MEDS ORDERED: Sodium Chloride 0.9% 500 ML 500 ML IV SCH (13:00)
[2022-12-11 14:18] LABS: Appearance Clear (Clear); Bacteria None Seen /HPF (None Seen); Bilirubin Negative (Negative); Blood Negative (Negative); Epithelial Cells Rare /HPF (None Seen); Glucose, Urine Negative (Negative); Hyaline Casts NONE SEEN /LPF (0-2); Ketones Negative (Negative); Leukocyte Esterase Negative (Negative); Nitrite Negative (Negative); Protein,Urine Dip Negative (Negative); RBC 0-2 /HPF (0-5); Specific Gravity <=1.005 (1.005-1.030); Urobilinogen 0.2 mg/dL (0.2); WBC 0-2 /HPF (0-5)
[2022-12-11 14:25] LABS: ADD URINE CULTURE? NO (NO)
[2022-12-11 14:32] VITALS: O2SAT 98
[2022-12-11 15:10] VITALS: BP 138/64; PULSE 92
== END 2022-12-11 15:14 | disposition home or self-care (01) ==
LOC: ED 10:34
DX: E87.6 Hypokalemia (principal); R63.4 Abnormal weight loss; E78.5 Hyperlipidemia, unspecified; E11.9 Type 2 diabetes mellitus without complications; Z79.4 Long term (current) use of insulin; Z79.84 Long term (current) use of oral hypoglycemic drugs; Z79.899 Other long term (current) drug therapy; Z20.828 Contact with and (suspected) exposure to other viral communicable diseases
CPT/HCPCS: 0241U; 36000; 36415; 71045; 80053; 81001; 83690; 83880; 84145; 84484; 85025; 93005; 99284; J3480; A9270-GY

== ENCOUNTER 2024-11-17 15:27 | Observation (INO) | payer MEDICARE, OTHER ==
--- NOTE | 2024-11-17 15:36 | ERPHSYRPT ---
- History of Present Illness Time Seen by Provider: 11/17/24 15:36 Source: patient, family Exam Limitations: no limitations Physician History: This is an overweight 74-year-old white female patient of Dr. Vega who arrives by private vehicle secondary to shortness of breath. She was also found to be hypoxic with room air oxygen saturation level of 88%. Patient was brought to the emergency department transported by her daughter. Patient denies chest pain. Patient received a Celestone (steroid) injection approximately 2 days ago secondary to cough and shortness of breath symptoms. Her symptoms are worse today. Patient has a history of diabetes, hypertension, gastroesophageal reflux disease, hyperlipidemia, COPD, coronary artery disease (CABG) and history of CVA in the past. Timing/Duration: today Severity of Dyspnea-Max: moderate Severity of Dyspnea-Current: moderate Possible Cause: occasional episodes Associated Symptoms: cough, wheezing, No chest pain/discomfort Allergies/Adverse Reactions: lisinopril Allergy (Severe, Verified 12/11/22 11:08) Swelling of Face tenecteplase Allergy (Verified 12/11/22 11:08) Swelling of Face ciprofloxacin [From Cipro] Adverse Reaction (Verified 12/11/22 11:08) Home Medications: Albuterol 2.5 mg/3 ml Neb [Proventil 2.5 mg/3 ml Neb] 2.5 mg IH QID 11/05/22 [History] Albuterol Common Canister [Ventolin Common Canister] 2 puff IH QIDPRN PRN 11/05/22 [History] Aspirin 81 gm Chew [Baby Aspirin 81 mg Chew] 81 mg PO DAILY 11/05/22 [History] Escitalopram Oxalate [Lexapro] 10 mg PO DAILY 11/05/22 [History] Fluticasone/Umeclidin/Vilanter [Trelegy Ellipta 100-62.5-25] 1 each IH DAILY 11/05/22 [History] Insulin Glargine [Lantus Insulin] 30 unit SQ HS 11/05/22 [History] Metformin HCl 500 mg [Glucophage 500 MG] 1,000 mg PO BIDWM 11/05/22 [History] Ubidecarenone [Coenzyme Q10] 200 mg PO DAILY 11/05/22 [History] metOLazone [Metolazone] 2.5 mg PO WEEKLY 11/05/22 [History] Amlodipine Besylate 5 mg [Norvasc 5 mg] 10 mg PO DAILY 11/06/22 [History] Cyanocobalamin 1000 Mcg/ml [Cyanocobalamin B-12 1000 MCG/ML] 1,000 mcg SQ UD 12/11/22 [History] Furosemide 20 mg [Lasix 20 mg] 40 mg PO DAILY 12/11/22 [History] Omeprazole 20 mg PO DAILY 12/11/22 [History] Ondansetron [Ondansetron Odt] 4 mg PO BID PRN 12/11/22 [History] Potassium Chloride [Klor-Con 10] 20 meq PO DAILY 12/11/22 [History] Hx Influenza Vaccination/Date Given: Yes Hx Pneumococcal Vaccination/Date Given: Yes Travel Risk - International Travel Have you traveled outside of the country in past 3 weeks: No - Emerging Infectious Disease Are you exhibiting symptoms associated with any current EIDs: Yes Symptoms: Cough: New Onset, Shortness of Breath - Review of Systems Constitutional: Weakness Eyes: No Symptoms Ears, Nose, & Throat: No Symptoms Respiratory: Cough, Dyspnea, Wheezing Cardiac: No Symptoms Abdominal/Gastrointestinal: No Symptoms Genitourinary Symptoms: No Symptoms Musculoskeletal: No Symptoms, Injury Neurological: No Symptoms Psychological: No Symptoms Endocrine: No Symptoms Hematologic/Lymphatic: No Symptoms Immunological/Allergic: No Symptoms All Other Systems: Reviewed and Negative - Past Medical History Pertinent Past Medical History: Yes Neurological History: Stroke ENT History: Other Cardiac History: Coronary Artery Disease, High Cholesterol Respiratory History: COPD Endocrine Medical History: Diabetes Type II Musculoskeletal History: No Pertinent History GI Medical History: No Pertinent History History: No Pertinent History Psycho-Social History: Depression Female Reproductive Disorders: No Pertinent History - Past Surgical History Past Surgical History: Yes Neuro Surgical History: No Pertinent History Cardiac: CABG, Cardiac Catheterization Gastrointestinal: Appendectomy Genitourinary: No Pertinent History Musculoskeletal: No Pertinent History Female Surgical History: Hysterectomy - Social History Smoking Status: Former smoker Exposure to second hand smoke: No Drug Use: none Patient Lives Alone: No - Nursing Vital Signs Nursing Vital Signs: Initial Vital Signs Temperature 98.3 F 11/17/24 15:27 Pulse Rate 63 11/17/24 15:27 Respiratory Rate 25 H 11/17/24 15:27 Blood Pressure 147/58 11/17/24 15:27 O2 Sat by Pulse Oximetry 99 11/17/24 15:27 Pain Scale Pain Intensity 0 - Physical Exam General Appearance: no apparent distress, alert, anxiety, obese Eye Exam: PERRL/EOMI, eyes nml inspection Ears, Nose, Throat Exam: hearing grossly normal, normal ENT inspection, normal pharynx Neck Exam: normal inspection, non-tender, supple, full range of motion Respiratory Exam: airway intact, wheezing (Bilateral expiratory wheezing), No chest tenderness, No respiratory distress Cardiovascular/Chest Exam: normal heart sounds, regular rate/rhythm Abdominal/Gastrointestinal Exam: soft, normal bowel sounds, No tenderness Rectal Exam: not done Extremity Exam: non-tender, normal range of motion, pelvis stable (Bilateral lower extremity lymphedema) Neurologic Exam: alert, oriented x 3, cooperative, dental resident II-XII nml as tested, normal mood/affect Skin Exam: normal color, warm, dry Lymphatic Exam: No adenopathy SpO2 Interpretation: normal O2 Delivery: Nasal Cannula - Course Nursing assessment & vital signs reviewed: Yes EKG Interpreted by Me: RATE (58), Sinus Rhythm, NORMAL AXIS, NORMAL INTERVALS, NORMAL QRS, Non-specific ST Changes (Anterior leads), Other (QTc is 458. No acute ischemic changes. No significant changes when compared to twelve-lead EKG dated 12/11/2022) Ordered Tests: Active Orders 24 hr Category Date Time Status EKG-ER Only STAT Care 11/17/24 15:49 Active Oxygen-ED Only Nasal Cannula 3 lpm Care 11/17/24 15:56 Active CHEST 1 VIEW (PORTABLE) Stat Exams 11/17/24 15:57 Taken BLOOD CULTURE Stat Lab 11/17/24 17:05 Received CBC W DIFF Stat Lab 11/17/24 17:00 Completed CMP Stat Lab 11/17/24 16:54 Completed D-DIMER QUANTITATIVE Stat Lab 11/17/24 16:54 Completed Lactic Acid Stat Lab 11/17/24 17:00 Completed MAGNESIUM Stat Lab 11/17/24 16:54 Completed NT PRO BNPII Stat Lab 11/17/24 16:54 Completed TROPONIN Q4H Lab 11/17/24 16:54 Completed TROPONIN Q4H Lab 11/17/24 20:00 Ordered TROPONIN Q4H Lab 11/18/24 00:00 Ordered Medication Summary Discontinued Medications Generic Name Dose Route Start Last Admin Trade Name Damion PRN Reason Stop Dose Admin Albuterol/Ipratropium 3 ml 11/17/24 15:41 11/17/24 15:42 Ipratropium/Albuterol Sulfate 3 Ml Ampul.Neb IH 11/17/24 15:42 3 ml STAT ONE Administration Albuterol/Ipratropium Confirm 11/17/24 15:40 Ipratropium/Albuterol Sulfate 3 Ml Ampul.Neb Administered 11/17/24 15:41 Dose 3 ml IH .STK-MED ONE Methylprednisolone Sodium 0 mg 11/17/24 18:31 11/17/24 18:39 Succinate 125 mg/ Sterile IV 11/17/24 18:32 125 mg Water 2 ml STAT ONE Administration Ceftriaxone Sodium 1 gm in 100 mls @ 200 mls/hr 11/17/24 18:30 11/17/24 19:13 Rocephin 1 Gm / 100 Ml Nacl IV 11/17/24 18:59 Infused STAT ONE Infusion Ceftriaxone Sodium Confirm 11/17/24 18:38 Rocephin 1 Gm / 100 Ml Nacl Administered 11/17/24 18:39 Dose 1 gm in 100 mls @ ud IV .STK-MED ONE Magnesium Oxide 400 mg 11/17/24 18:11 11/17/24 18:20 Magnesium Oxide 400 Mg Tablet PO 11/17/24 18:12 400 mg STAT ONE Administration Magnesium Oxide Confirm 11/17/24 18:19 Magnesium Oxide 400 Mg Tablet Administered 11/17/24 18:20 Dose 400 mg .ROUTE .STK-MED ONE Methylprednisolone Sodium Succinate Confirm 11/17/24 18:38 Methylprednis Sod Succ 125 Mg/2 Ml Vial Administered 11/17/24 18:39 Dose 125 mg .ROUTE .STK-MED ONE Potassium Chloride 10 meq 11/17/24 18:11 11/17/24 18:20 Potassium Chloride Tab 10 Meq Tab PO 11/17/24 18:12 10 meq STAT ONE Administration Potassium Chloride Confirm 11/17/24 18:18 Potassium Chloride Tab 10 Meq Tab Administered 11/17/24 18:19 Dose 10 meq .ROUTE .STK-MED ONE Sterile Water Confirm 11/17/24 18:38 Water For Injection,Sterile 10 Ml Vial Administered 11/17/24 18:39 Dose 10 ml IJ .STK-MED ONE Lab/Rad Data: Laboratory Result Diagrams 11/17/24 17:00 11/17/24 16:54 Laboratory Results 11/17/24 11/17/24 11/17/24 Range/Units 17:10 17:00 17:00 WBC 8.6 (3.98-10.04) x10^3/uL RBC 4.00 (3.93-5.22) x10^6/uL Hgb 11.5 (11.2-15.7) g/dL Hct 35.6 (34.1-44.9) % MCV 89.0 (79.4-94.8) fL MCH 28.8 (25.6-32.2) pg MCHC 32.3 (32.2-35.5) g/dL RDW 14.1 (11.7-14.4) % Plt Count 224 (182-369) x10^3/uL MPV 11.5 (9.4-12.3) fL Gran % 69.8 (34.0-71.1) % Immature Gran % (Auto) 0.6 H (0.001-0.429) % Nucleat RBC Rel Count 0.0 (0.00-0.2) % Eos # (Auto) 0.06 (0.04-0.36) x10^3/uL Immature Gran # (Auto) 0.05 H (0.001-0.031) x10^3u/L Absolute Lymphs (auto) 1.76 (1.18-3.74) x10^3/uL Absolute Monos (auto) 0.68 (0.24-0.86) x10^3/uL Absolute Nucleated RBC 0.00 (0.00-0.012) x10^3u/L Lymphocytes % 20.6 (19.3-51.7) % Monocytes % 7.9 (4.7-12.5) % Eosinophils % 0.7 (0.7-5.8) % Basophils % 0.4 (0.1-1.2) % Absolute Granulocytes 5.98 (1.56-6.13) x10^3/uL Basophils # 0.03 (0.01-0.08) x10^3/uL D-Dimer (0.0-0.50) mg/L Sodium (135-145) mmol/L Potassium (3.5-5.1) mmol/L Chloride (98-107) mmol/L Carbon Dioxide (22-30) mmol/L Anion Gap (5-15) MEQ/L BUN (7-17) mg/dL Creatinine (0.52-1.04) mg/dL Estimated GFR ML/MIN Glucose (74-106) mg/dL Lactic Acid 2.0 (0.4-2.0) Calcium (8.4-10.2) mg/dL Magnesium (1.6-2.3) mg/dL Total Bilirubin (0.2-1.3) mg/dL AST (14-36) U/L ALT (0-35) U/L Alkaline Phosphatase (38-126) U/L Troponin I (0.000-0.033) ng/mL NT-Pro-B Natriuret Pep (<300) pg/mL Serum Total Protein (6.3-8.2) g/dL Albumin (3.5-5.0) g/dL Influenza Type A Ag NEGATIVE (NEGATIVE) Influenza Type B Ag NEGATIVE (NEGATIVE) RSV (PCR) NEGATIVE (NEGATIVE) SARS-CoV-2 (PCR) NEGATIVE (NEGATIVE) 11/17/24 11/17/24 11/17/24 Range/Units 16:54 16:54 16:54 WBC (3.98-10.04) x10^3/uL RBC (3.93-5.22) x10^6/uL Hgb (11.2-15.7) g/dL Hct (34.1-44.9) % MCV (79.4-94.8) fL MCH (25.6-32.2) pg MCHC (32.2-35.5) g/dL RDW (11.7-14.4) % Plt Count (182-369) x10^3/uL MPV (9.4-12.3) fL Gran % (34.0-71.1) % Immature Gran % (Auto) (0.001-0.429) % Nucleat RBC Rel Count (0.00-0.2) % Eos # (Auto) (0.04-0.36) x10^3/uL Immature Gran # (Auto) (0.001-0.031) x10^3u/L Absolute Lymphs (auto) (1.18-3.74) x10^3/uL Absolute Monos (auto) (0.24-0.86) x10^3/uL Absolute Nucleated RBC (0.00-0.012) x10^3u/L Lymphocytes % (19.3-51.7) % Monocytes % (4.7-12.5) % Eosinophils % (0.7-5.8) % Basophils % (0.1-1.2) % Absolute Granulocytes (1.56-6.13) x10^3/uL Basophils # (0.01-0.08) x10^3/uL D-Dimer 0.38 (0.0-0.50) mg/L Sodium 141 (135-145) mmol/L Potassium 3.4 L (3.5-5.1) mmol/L Chloride 98 (98-107) mmol/L Carbon Dioxide 32 H (22-30) mmol/L Anion Gap 13.9 (5-15) MEQ/L BUN 15 (7-17) mg/dL Creatinine 0.83 (0.52-1.04) mg/dL Estimated GFR 74.9 ML/MIN Glucose 81 (74-106) mg/dL Lactic Acid (0.4-2.0) Calcium 10.1 (8.4-10.2) mg/dL Magnesium 1.3 L (1.6-2.3) mg/dL Total Bilirubin 0.40 (0.2-1.3) mg/dL AST 30 (14-36) U/L ALT 22 (0-35) U/L Alkaline Phosphatase 84 (38-126) U/L Troponin I 0.013 (0.000-0.033) ng/mL NT-Pro-B Natriuret Pep 948 (<300) pg/mL Serum Total Protein 6.5 (6.3-8.2) g/dL Albumin 4.1 (3.5-5.0) g/dL Influenza Type A Ag (NEGATIVE) Influenza Type B Ag (NEGATIVE) RSV (PCR) (NEGATIVE) SARS-CoV-2 (PCR) (NEGATIVE) - Progress Progress: improved, re-examined Air Movement: fair Progress Note: 11/17/24 16:05 My medical decision making and the assignment of moderate complexity to this patient's medical issue today is based on review of the patient's past medical history, review the patient's medication list, review patient drug allergy list, history present as a physical findings on examination. The workup in this patient includes placement of intravenous line, CBC, CMP, magnesium level, D- dimer, BNP, troponin level, twelve-lead EKG, chest x-ray. Differential diagnosis includes but is not limited to CHF exacerbation, COPD exacerbation, myocardial infarction, electrolyte abnormalities, anemia, upper respiratory infection 11/17/24 19:38 I interpreted the patient's laboratory data results. Based on the laboratory data results there are no acute, emergent medical issues. I interpreted the preliminary chest x-ray report on this patient. I see no acute cardiopulmonary process. The final report on this chest x-ray was interpreted by the radiologist and I reviewed the impression. The pression states no acute cardiopulmonary process. I reexamined the patient. The patient is still having expiratory wheezing. Her oxygen saturation levels on 3 L are 97%. We got her up and walked her in the hallway on 2 L and her oxygen saturation dropped significantly. I contacted the telehospitalist on-call, Dr. Jimenez. I reviewed the patient history, presenting complaint, physical findings, workup results with him and the response the patient had went ambulating her. We will place her in observation. He accepts her to be placed in observation. Blood Culture(s) Obtained: Yes Counseled pt/family regarding: lab results, diagnosis, need for follow-up, rad results Medical Desision Making - Independent Historian Additional History obtained from: Relative/friend - Discussion of managment Care discussed with:: hospitalist Reviewed:: Test results, Need for additional workup Agreed on:: place in obs - Diagnostic Testing Diagnostic test were ordered, analyzed, and reviewed by me: Yes Radiological Interpretation: Interpreted by me, Reviewed by me, Teleradiologist Report - Risk of complications The pt has a high risk of morbidity or mortality based on: Decision regarding hospitilization or escalation of hosp level of care - Departure Departure Disposition: Observation Clinical Impression: Hypoxia, COPD exacerbation, Wheezing on both sides of chest Condition: Fair Critical Care Time: Yes Critical Care Time(excluding separately billable procedures): Critical 30-74 mins (45) Referrals: VÍCTOR VEGA MD [Primary Care Provider, [facility]] - Follow up/PCP as directed Instructions: Chronic Obstructive Pulmonary Disease
[2024-11-17] MEDS ORDERED: DUONEB 0.5-3 MG/3 ml Neb IH ONE (15:40)
[2024-11-17] MEDS: DUONEB 0.5-3 MG/3 ml Neb IH ONE (15:42)
[2024-11-17 17:21] LABS: Absolute Neutrophil Ct (ANC) 5.98 x10^3/uL (1.56-6.13); BASOPHIL % 0.4 % (0.1-1.2); Basophil (Absolute #) 0.03 x10^3/uL (0.01-0.08); Eosinophil % 0.7 % (0.7-5.8); Eosinophil (Absolute #) 0.06 x10^3/uL (0.04-0.36); Hematocrit 35.6 % (34.1-44.9); Hemoglobin 11.5 g/dL (11.2-15.7); IMMATURE GRAN # 0.05 x10^3u/L (0.001-0.031); IMMATURE GRAN % 0.6 % (0.001-0.429); Lymphocyte (Absolute #) 1.76 x10^3/uL (1.18-3.74); Lymphocytes % 20.6 % (19.3-51.7); Mean Corpuscular Hemoglobin 28.8 pg (25.6-32.2); Mean Corpuscular Hgb Concent. 32.3 g/dL (32.2-35.5); Mean Platelet Volume 11.5 fL (9.4-12.3); Monocyte (Absolute #) 0.68 x10^3/uL (0.24-0.86); Monocytes % 7.9 % (4.7-12.5); Neutrophil % 69.8 % (34.0-71.1); Platelet Count 224 x10^3/uL (182-369); Red Cell Distribution Width 14.1 % (11.7-14.4); White Blood Count 8.6 x10^3/uL (3.98-10.04)
[2024-11-17 17:29] LABS: ALBUMIN 4.1 g/dL (3.5-5.0); ANION GAP 13.9 MEQ/L (5-15); BILIRUBIN,TOTAL 0.4 mg/dL (0.2-1.3); Calcium 10.1 mg/dL (8.4-10.2); Creatinine 1 0.83 mg/dL (0.52-1.04); EST GLOMERULAR FILTRATION RATE 74.9 ML/MIN; MAGNESIUM 1.3 mg/dL (1.6-2.3); Potassium 3.4 mmol/L (3.5-5.1); Total Protein 6.5 g/dL (6.3-8.2)
[2024-11-17 17:42] LABS: TROPONIN 0.013 ng/mL (0.000-0.033)
[2024-11-17 17:51] LABS: INFLUENZA A NEGATIVE (NEGATIVE); INFLUENZA B NEGATIVE (NEGATIVE); RESPIRATORY SYNCTIAL VIRUS NEGATIVE (NEGATIVE); SARS-CoV-2 Xpert Express NEGATIVE (NEGATIVE)
[2024-11-17] MEDS ORDERED: Klor Con ONE (18:18)
[2024-11-17] MEDS ORDERED: MAG-OX 400 ONE (18:19)
[2024-11-17] MEDS: MAG-OX 400 PO ONE (18:20)
[2024-11-17] MEDS: Klor Con PO ONE (18:20)
[2024-11-17] MEDS ORDERED: Sterile H2O 10 ml IJ ONE (18:38)
[2024-11-17] MEDS ORDERED: solu-MEDROL ONE (18:38)
[2024-11-17] MEDS ORDERED: ROCEPHIN 1 GM / 100 ML NaCl 1 GM/100 ML IVPB IV ONE (18:38)
[2024-11-17] MEDS: solu-MEDROL 125 MG, Sterile H2O 10 ml 2 ML IV ONE (18:39)
[2024-11-17] MEDS: ROCEPHIN 1 GM / 100 ML NaCl 1 GM/100 ML IVPB IV ONE (18:43)
[2024-11-17] MEDS ORDERED: Zofran 4 MG/2 ML VIAL IV PRN (20:14)
[2024-11-17] MEDS ORDERED: TYLENOL 325 MG PO PRN (20:24)
--- NOTE | 2024-11-17 20:40 | PCM.HP ---
History of Present Illness - Chief Complaint Chief Complaint: COPD Date: 11/17/24 History of Present Illness: is a 74 year old female with COPD (on home oxygen at 2LPM), CAD (s/p CABG), HTN, GERD, DM, and old stroke, who presented to the ED with shortness of breath. She was also found to be hypoxic with room air oxygen saturation level of 88%. Patient received a Celestone (steroid) injection approximately 2 days ago secondary to cough and shortness of breath symptoms. Her symptoms are worse today. She has had a nonproductive cough. No fevers, chills, hemoptysis or chest pain. She reports chronic bilateral leg edema which is unchanged. The patient's daughter is at bedside during my assessment. - Review of Systems Constitutional: No Symptoms Eyes: No Symptoms Ears, Nose, & Throat: No Symptoms Respiratory: Cough, Short Of Breath, Wheezing Cardiac: Edema (chronic bilateral leg) Abdominal/Gastrointestinal: No Symptoms Genitourinary Symptoms: No Symptoms Musculoskeletal: No Symptoms Skin: No Symptoms Neurological: No Symptoms Psychological: No Symptoms Endocrine: No Symptoms Hematologic/Lymphatic: No Symptoms Immunological/Allergic: No Symptoms All Other Systems: Reviewed and Negative Medications & Allergies Home Medications: Home Medication List Albuterol 2.5 mg/3 ml Neb [Proventil 2.5 mg/3 ml Neb] 2.5 mg IH QID 11/05/22 [History Confirmed 12/11/22] Albuterol Common Canister [Ventolin Common Canister] 2 puff IH QIDPRN PRN 11/05/22 [History Confirmed 12/11/22] Aspirin 81 gm Chew [Baby Aspirin 81 mg Chew] 81 mg PO DAILY 11/05/22 [History Confirmed 12/11/22] Escitalopram Oxalate [Lexapro] 10 mg PO DAILY 11/05/22 [History Confirmed 12/11/22] Fluticasone/Umeclidin/Vilanter [Trelegy Ellipta 100-62.5-25] 1 each IH DAILY 11/05/22 [History Confirmed 12/11/22] Insulin Glargine [Lantus Insulin] 30 unit SQ HS 11/05/22 [History Confirmed 12/11/22] Metformin HCl 500 mg [Glucophage 500 MG] 1,000 mg PO BIDWM 11/05/22 [History Confirmed 12/11/22] Ubidecarenone [Coenzyme Q10] 200 mg PO DAILY 11/05/22 [History Confirmed 12/11/22] metOLazone [Metolazone] 2.5 mg PO WEEKLY 11/05/22 [History Confirmed 12/11/22] Amlodipine Besylate 5 mg [Norvasc 5 mg] 10 mg PO DAILY 11/06/22 [History Confirmed 12/11/22] Atorvastatin Calcium [Lipitor 40Mg] 40 mg PO HS #90 tablet 11/12/22 [Rx Confirmed 12/11/22] Glipizide 10 mg [Glucotrol 10 MG] 10 mg PO BID #60 tablet 11/12/22 [Rx Confirmed 12/11/22] Metoprolol Tartrate 25 mg [Lopressor 25MG Tab] 25 mg PO BID #30 11/12/22 [Rx Confirmed 12/11/22] Cyanocobalamin 1000 Mcg/ml [Cyanocobalamin B-12 1000 MCG/ML] 1,000 mcg SQ UD 12/11/22 [History Confirmed 12/11/22] Furosemide 20 mg [Lasix 20 mg] 40 mg PO DAILY 12/11/22 [History Confirmed 12/11/22] Omeprazole 20 mg PO DAILY 12/11/22 [History Confirmed 12/11/22] Ondansetron [Ondansetron Odt] 4 mg PO BID PRN 12/11/22 [History Confirmed 12/11/22] Potassium Chloride [Klor-Con 10] 20 meq PO DAILY 12/11/22 [History Confirmed 12/11/22] Allergies/Adverse Reactions: Allergies Allergy/AdvReac Type Severity Reaction Status Date / Time lisinopril Allergy Severe Swelling Verified 12/11/22 11:08 of Face tenecteplase Allergy Swelling Verified 12/11/22 11:08 of Face ciprofloxacin [From Cipro] AdvReac Verified 12/11/22 11:08 - Past Medical History Past Medical History: Yes Neurological History: Stroke ENT History: Other Cardiac History: Coronary Artery Disease, High Cholesterol, Hypertension Respiratory History: COPD Endocrine Medical History: Diabetes Type II Musculoskelatal History: No Pertinent History GI Medical History: No Pertinent History History: No Pertinent History Pyscho-Social History: Depression Reproductive Disorders: No Pertinent History - Past Surgical History Past Surgical History: Yes Neuro Surgical History: No Pertinent History Cardiac History: CABG, Cardiac Catheterization GI Surgical History: Appendectomy Genitourinary Surgical Hx: No Pertinent History Musculskeletal Surgical Hx: No Pertinent History Female Surgical History: Hysterectomy Other Surgical History: PFO Closure Significant Family History: no pertinent family hx - Social History Smoking Status: Former smoker Exposure to second hand smoke: No Alcohol: None Drug Use: none - Social Determinants of Health Will the patient participate in the screening: Declined to provide - Physical Exam Vital Signs: Vital Signs - 24 hr Temp Pulse Resp BP BP Pulse Ox 11/17/24 19:10 87 21 11/17/24 19:03 63 22 94 L 11/17/24 18:31 70 23 154/88 94 L 11/17/24 18:01 66 21 159/53 98 11/17/24 17:31 64 16 160/66 97 11/17/24 17:15 69 18 162/92 97 11/17/24 17:12 82 L 11/17/24 17:00 61 20 148/86 96 11/17/24 16:50 67 17 96 11/17/24 16:41 66 20 96 11/17/24 16:01 66 28 H 148/62 97 11/17/24 15:46 61 20 99 11/17/24 15:31 60 21 147/58 98 11/17/24 15:29 41 H 155/69 93 L 11/17/24 15:27 98.3 F 63 24 147/58 89 L General Appearance: no apparent distress, alert Neurologic Exam: alert, oriented x 3, cooperative, train electronic technician II-XII nml as tested, normal mood/affect, nml cerebellar function Eye Exam: PERRL/EOMI, eyes nml inspection Ears, Nose, Throat Exam: normal ENT inspection Neck Exam: normal inspection, non-tender, supple, full range of motion Respiratory Exam: airway intact, diminished breath sounds, wheezing Cardiovascular Exam: regular rate/rhythm, normal heart sounds, edema (pitting bilateral leg edema (chronic)) Back Exam: normal range of motion Extremity Exam: normal range of motion, pedal edema, swelling Skin Exam: normal color Results - Labs Lab/Micro Results: Lab Results-Last 24 Hours 11/17/24 11/17/24 11/17/24 Range/Units 16:54 16:54 16:54 WBC (3.98-10.04) x10^3/uL RBC (3.93-5.22) x10^6/uL Hgb (11.2-15.7) g/dL Hct (34.1-44.9) % MCV (79.4-94.8) fL MCH (25.6-32.2) pg MCHC (32.2-35.5) g/dL RDW (11.7-14.4) % Plt Count (182-369) x10^3/uL MPV (9.4-12.3) fL Gran % (34.0-71.1) % Immature Gran % (Auto) (0.001-0.429) % Nucleat RBC Rel Count (0.00-0.2) % Eos # (Auto) (0.04-0.36) x10^3/uL Immature Gran # (Auto) (0.001-0.031) x10^3u/L Absolute Lymphs (auto) (1.18-3.74) x10^3/uL Absolute Monos (auto) (0.24-0.86) x10^3/uL Absolute Nucleated RBC (0.00-0.012) x10^3u/L Lymphocytes % (19.3-51.7) % Monocytes % (4.7-12.5) % Eosinophils % (0.7-5.8) % Basophils % (0.1-1.2) % Absolute Granulocytes (1.56-6.13) x10^3/uL Basophils # (0.01-0.08) x10^3/uL D-Dimer 0.38 (0.0-0.50) mg/L Sodium 141 (135-145) mmol/L Potassium 3.4 L (3.5-5.1) mmol/L Chloride 98 (98-107) mmol/L Carbon Dioxide 32 H (22-30) mmol/L Anion Gap 13.9 (5-15) MEQ/L BUN 15 (7-17) mg/dL Creatinine 0.83 (0.52-1.04) mg/dL Estimated GFR 74.9 ML/MIN Glucose 81 (74-106) mg/dL Lactic Acid (0.4-2.0) Calcium 10.1 (8.4-10.2) mg/dL Magnesium 1.3 L (1.6-2.3) mg/dL Total Bilirubin 0.40 (0.2-1.3) mg/dL AST 30 (14-36) U/L ALT 22 (0-35) U/L Alkaline Phosphatase 84 (38-126) U/L Troponin I 0.013 (0.000-0.033) ng/mL NT-Pro-B Natriuret Pep 948 (<300) pg/mL Serum Total Protein 6.5 (6.3-8.2) g/dL Albumin 4.1 (3.5-5.0) g/dL Influenza Type A Ag (NEGATIVE) Influenza Type B Ag (NEGATIVE) RSV (PCR) (NEGATIVE) SARS-CoV-2 (PCR) (NEGATIVE) 11/17/24 11/17/24 11/17/24 Range/Units 17:00 17:00 17:10 WBC 8.6 (3.98-10.04) x10^3/uL RBC 4.00 (3.93-5.22) x10^6/uL Hgb 11.5 (11.2-15.7) g/dL Hct 35.6 (34.1-44.9) % MCV 89.0 (79.4-94.8) fL MCH 28.8 (25.6-32.2) pg MCHC 32.3 (32.2-35.5) g/dL RDW 14.1 (11.7-14.4) % Plt Count 224 (182-369) x10^3/uL MPV 11.5 (9.4-12.3) fL Gran % 69.8 (34.0-71.1) % Immature Gran % (Auto) 0.6 H (0.001-0.429) % Nucleat RBC Rel Count 0.0 (0.00-0.2) % Eos # (Auto) 0.06 (0.04-0.36) x10^3/uL Immature Gran # (Auto) 0.05 H (0.001-0.031) x10^3u/L Absolute Lymphs (auto) 1.76 (1.18-3.74) x10^3/uL Absolute Monos (auto) 0.68 (0.24-0.86) x10^3/uL Absolute Nucleated RBC 0.00 (0.00-0.012) x10^3u/L Lymphocytes % 20.6 (19.3-51.7) % Monocytes % 7.9 (4.7-12.5) % Eosinophils % 0.7 (0.7-5.8) % Basophils % 0.4 (0.1-1.2) % Absolute Granulocytes 5.98 (1.56-6.13) x10^3/uL Basophils # 0.03 (0.01-0.08) x10^3/uL D-Dimer (0.0-0.50) mg/L Sodium (135-145) mmol/L Potassium (3.5-5.1) mmol/L Chloride (98-107) mmol/L Carbon Dioxide (22-30) mmol/L Anion Gap (5-15) MEQ/L BUN (7-17) mg/dL Creatinine (0.52-1.04) mg/dL Estimated GFR ML/MIN Glucose (74-106) mg/dL Lactic Acid 2.0 (0.4-2.0) Calcium (8.4-10.2) mg/dL Magnesium (1.6-2.3) mg/dL Total Bilirubin (0.2-1.3) mg/dL AST (14-36) U/L ALT (0-35) U/L Alkaline Phosphatase (38-126) U/L Troponin I (0.000-0.033) ng/mL NT-Pro-B Natriuret Pep (<300) pg/mL Serum Total Protein (6.3-8.2) g/dL Albumin (3.5-5.0) g/dL Influenza Type A Ag NEGATIVE (NEGATIVE) Influenza Type B Ag NEGATIVE (NEGATIVE) RSV (PCR) NEGATIVE (NEGATIVE) SARS-CoV-2 (PCR) NEGATIVE (NEGATIVE) 11/17/24 Range/Units 19:40 WBC (3.98-10.04) x10^3/uL RBC (3.93-5.22) x10^6/uL Hgb (11.2-15.7) g/dL Hct (34.1-44.9) % MCV (79.4-94.8) fL MCH (25.6-32.2) pg MCHC (32.2-35.5) g/dL RDW (11.7-14.4) % Plt Count (182-369) x10^3/uL MPV (9.4-12.3) fL Gran % (34.0-71.1) % Immature Gran % (Auto) (0.001-0.429) % Nucleat RBC Rel Count (0.00-0.2) % Eos # (Auto) (0.04-0.36) x10^3/uL Immature Gran # (Auto) (0.001-0.031) x10^3u/L Absolute Lymphs (auto) (1.18-3.74) x10^3/uL Absolute Monos (auto) (0.24-0.86) x10^3/uL Absolute Nucleated RBC (0.00-0.012) x10^3u/L Lymphocytes % (19.3-51.7) % Monocytes % (4.7-12.5) % Eosinophils % (0.7-5.8) % Basophils % (0.1-1.2) % Absolute Granulocytes (1.56-6.13) x10^3/uL Basophils # (0.01-0.08) x10^3/uL D-Dimer (0.0-0.50) mg/L Sodium (135-145) mmol/L Potassium (3.5-5.1) mmol/L Chloride (98-107) mmol/L Carbon Dioxide (22-30) mmol/L Anion Gap (5-15) MEQ/L BUN (7-17) mg/dL Creatinine (0.52-1.04) mg/dL Estimated GFR ML/MIN Glucose (74-106) mg/dL Lactic Acid (0.4-2.0) Calcium (8.4-10.2) mg/dL Magnesium (1.6-2.3) mg/dL Total Bilirubin (0.2-1.3) mg/dL AST (14-36) U/L ALT (0-35) U/L Alkaline Phosphatase (38-126) U/L Troponin I < 0.012 (0.000-0.033) ng/mL NT-Pro-B Natriuret Pep (<300) pg/mL Serum Total Protein (6.3-8.2) g/dL Albumin (3.5-5.0) g/dL Influenza Type A Ag (NEGATIVE) Influenza Type B Ag (NEGATIVE) RSV (PCR) (NEGATIVE) SARS-CoV-2 (PCR) (NEGATIVE) - Radiology Impressions Radiology Exams & Impressions: Radiology Procedures Category Date Time Status CHEST 1 VIEW (PORTABLE) Stat Exams 11/17/24 15:57 Taken - Other Procedures and Tests Respiratory Therapy 11/17/24 20:14 EKG REPEAT IN AM Respiratory Therapy Consult ONCE Assessment/Plan (1) COPD exacerbation Current Visit: Yes Status: Acute Assessment & Plan: Nebs, steroids, antibiotics. Wean O2 as tolerated. PT eval. Code(s): J44.1 - CHRONIC OBSTRUCTIVE PULMONARY DISEASE W (ACUTE) EXACERBATION (2) Hypoxia Current Visit: Yes Status: Acute Assessment & Plan: Wean to baseline 2 LPM as tolerated. PT eval for ambulatory O2 assessment. Code(s): R09.02 - HYPOXEMIA (3) Acute bronchitis Current Visit: Yes Status: Acute Assessment & Plan: Antibiotics. Mucinex. Code(s): J20.9 - ACUTE BRONCHITIS, UNSPECIFIED (4) DM2 (diabetes mellitus, type 2) Current Visit: No Status: Chronic Qualifiers: Diabetes mellitus forensic technician insulin use: with forensic technician use Assessment & Plan: Hold metformin in case contrast necessary. Monitor sugars on ISS. (5) Hypomagnesemia Current Visit: Yes Status: Acute Assessment & Plan: Replete and recheck. Code(s): E83.42 - HYPOMAGNESEMIA (6) HTN (hypertension) Current Visit: No Status: Chronic Assessment & Plan: Monitor BP on home regimen. Code(s): I10 - ESSENTIAL (PRIMARY) HYPERTENSION (7) Low serum potassium Current Visit: No Status: Acute Assessment & Plan: Replete and recheck. Code(s): E87.6 - HYPOKALEMIA Telemedicine Encounter - Telemedicine Encounter Telemedicine Encounter: "The entirety of this encounter was performed via Telemedicine" This visit was performed using real-time audio and video connection between my location and thepatients locationwith the assistance of a surrogateat the patients location. Written or verbal consent was obtained from the patient/guardian to perform this visit [email or web address]. Any patient questions regarding the telemedicine interaction were answered. Please note that this admission required 44 minutes to complete.
[2024-11-17] MEDS ORDERED: Cyanocobalamin B-12 1000 MCG/ML SQ SCH (21:00)
[2024-11-17] MEDS: PROVENTIL 2.5 MG/3 ML NEB IH PRN (21:08)
[2024-11-17] MEDS ORDERED: LIPITOR 40MG PO SCH (22:00)
[2024-11-17] MEDS ORDERED: PROZAC 10 MG PO SCH (22:00)
[2024-11-17] MEDS: NON-FORMULARY ITEM (Glipizide 10 Mg*** [Glucotrol 10 Mg***] 10 MG Tablet) PO SCH (22:15)
[2024-11-17] MEDS ORDERED: ZOCOR 20MG ONE (22:18)
[2024-11-17] MEDS: Mucinex 600MG ER Tabs PO SCH (22:44)
[2024-11-17] MEDS: Lantus Insulin SQ SCH (22:45)
[2024-11-17] MEDS: Lopressor 25MG Tab PO SCH (22:45)
[2024-11-17] MEDS: ZOCOR 20MG PO SCH (22:47)
[2024-11-18] MEDS: solu-MEDROL 40 MG, Sterile H2O 10 ml 1 ML IV SCH
[2024-11-18] MEDS: DUONEB 0.5-3 MG/3 ml Neb IH SCH (01:20)
[2024-11-18 01:40] LABS: Absolute Neutrophil Ct (ANC) 5.99 x10^3/uL (1.56-6.13); BASOPHIL % 0.1 % (0.1-1.2); Basophil (Absolute #) 0.01 x10^3/uL (0.01-0.08); Eosinophil % 0.6 % (0.7-5.8); Eosinophil (Absolute #) 0.04 x10^3/uL (0.04-0.36); Hematocrit 34.9 % (34.1-44.9); Hemoglobin 11.1 g/dL (11.2-15.7); IMMATURE GRAN # 0.03 x10^3u/L (0.001-0.031); IMMATURE GRAN % 0.4 % (0.001-0.429); Lymphocyte (Absolute #) 0.84 x10^3/uL (1.18-3.74); Mean Cell Volume 89.3 fL (79.4-94.8); Mean Corpuscular Hemoglobin 28.4 pg (25.6-32.2); Mean Corpuscular Hgb Concent. 31.8 g/dL (32.2-35.5); Mean Platelet Volume 11.4 fL (9.4-12.3); Monocytes % 1.4 % (4.7-12.5); Neutrophil % 85.5 % (34.0-71.1); Platelet Count 188 x10^3/uL (182-369); Red Blood Count 3.91 x10^6/uL (3.93-5.22)
[2024-11-18 02:18] LABS: ALBUMIN 4.1 g/dL (3.5-5.0); ANION GAP 18.3 MEQ/L (5-15); BILIRUBIN,TOTAL 0.4 mg/dL (0.2-1.3); Calcium 9.4 mg/dL (8.4-10.2); Creatinine 1 0.8 mg/dL (0.52-1.04); EST GLOMERULAR FILTRATION RATE 78.2 ML/MIN; Total Protein 6.8 g/dL (6.3-8.2)
[2024-11-18 02:19] LABS: Potassium 4.1 mmol/L (3.5-5.1)
[2024-11-18] MEDS ORDERED: solu-MEDROL ONE ×2 (02:28→05:51)
[2024-11-18] MEDS ORDERED: Sterile H2O 10 ml IJ ONE (05:51)
[2024-11-18] MEDS ORDERED: MEDICATION INTERVENTION MC SCH ×2 (07:15→07:45)
[2024-11-18] MEDS: Advair Hfa 115/21 Common canister IH SCH (07:20)
[2024-11-18] MEDS: Glucotrol 5 MG PO SCH (08:27)
[2024-11-18] MEDS: MAG-OX 400 PO ONE (08:27)
[2024-11-18] MEDS: HUMULIN R SQ PRN (08:28)
--- NOTE | 2024-11-18 08:48 | XRAY ---
Indication: Short of breath. Comparison: October 17, 2023 Portable chest again demonstrates COPD, small left mid lung calcified granuloma, and left midlung subsegmental atelectasis/scarring. No focal infiltrate, consolidation, or large effusion. Heart not enlarged again with CABG. Bony thorax intact again with osteopenia and mild degenerative changes. Impression: Continued nonacute chest with chronic features.
[2024-11-18] MEDS ORDERED: NON-FORMULARY ITEM (Omeprazole [Omeprazole] 20 MG Capsule.Dr) PO SCH (10:00)
[2024-11-18] MEDS ORDERED: UBIDECARENONE 200 MG PO SCH (10:00)
[2024-11-18] MEDS ORDERED: BABY ASPIRIN 81 MG CHEW PO SCH (10:00)
[2024-11-18] MEDS ORDERED: LASIX 20 MG PO SCH (10:00)
[2024-11-18] MEDS: NORVASC 5 MG PO SCH (10:46)
[2024-11-18] MEDS: Lexapro PO SCH (10:47)
[2024-11-18] MEDS: Acidophilus TABLET PO SCH (10:47)
[2024-11-18] MEDS: ECOTRIN 81 MG PO SCH (10:47)
[2024-11-18] MEDS: Klor Con PO SCH (10:47)
[2024-11-18] MEDS: Lasix 40 MG PO SCH (10:48)
[2024-11-18] MEDS: ENOXAPARIN SODIUM SQ SCH (10:48)
[2024-11-18] MEDS: Protonix 40MG Tablet PO SCH (10:48)
[2024-11-18] MEDS: ROCEPHIN 1 GM / 100 ML NaCl 1 GM/100 ML IVPB IV SCH (10:49)
[2024-11-18] MEDS: ZITHROMAX IV*** 500 MG in Sodium Chloride 0.9% 250 ML 250 ML IV SCH (11:16)
--- NOTE | 2024-11-18 12:02 | PCM.NOTE ---
Date and Time: 11/18/24 1156 Subjective Assessment: The patient is a 74-year-old female with a medical history of COPD (on 2L home oxygen), coronary artery disease status post CABG, hypertension, GERD, diabetes mellitus, and a prior stroke. She presented to the emergency department on 11/17/24 with worsening shortness of breath. On arrival, she was found to be hypoxic with an oxygen saturation of 88% on room air. She had received a Celestone (steroid) injection two days prior due to similar symptoms, but her condition worsened, prompting evaluation. She reported a nonproductive cough but denies fever, chills, hemoptysis, or chest pain. She also has chronic bilateral leg edema, which she states is unchanged.Today, the patient reports feeling much better, and her wheezing has improved. However, she remains on 4L oxygen via nasal cannula with a saturation of 97%, above her baseline of 2L. Management will continue with antibiotics, steroids, Duonebs, Advair, and Mucinex for COPD exacerbation. Discharge will be considered tomorrow if her oxygen requirement can be weaned to baseline. She currently denies any additional concerns. - Review of Systems Constitutional: No Fever, No Chills Eyes: No Symptoms Ears, Nose, & Throat: No Symptoms Respiratory: Short Of Breath, No Cough Cardiac: Edema, No Chest Pain, No Syncope Abdominal/Gastrointestinal: No Abdominal Pain, No Nausea, No Vomiting, No Diarrhea Genitourinary Symptoms: No Dysuria Musculoskeletal: No Back Pain, No Neck Pain Skin: No Rash Neurological: No Dizziness, No Focal Weakness, No Sensory Changes Psychological: No Symptoms Endocrine: No Symptoms Hematologic/Lymphatic: No Symptoms Immunological/Allergic: No Symptoms Objective Exam General Appearance: no apparent distress, alert, obese Neurologic Exam: alert, oriented x 3, cooperative, normal mood/affect, nml cerebellar function, sensation nml, No motor deficits Skin Exam: normal color, warm, dry Eye Exam: PERRL, EOMI, eyes nml inspection Ears, Nose, Throat Exam: normal ENT inspection, pharynx normal, moist mucous membranes Neck Exam: normal inspection, non-tender, supple, full range of motion Respiratory Exam: lungs clear, wheezing, No respiratory distress Cardiovascular Exam: regular rate/rhythm, normal heart sounds, edema (BLLE- at BL per pt) Gastrointestinal/Abdomen Exam: soft, No tenderness, No mass Extremity Exam: normal inspection, normal range of motion Back Exam: normal inspection, normal range of motion, No CVA tenderness, No vertebral tenderness Pelvic Exam: deferred Rectal Exam: deferred Objective Data Vital Signs: Vital Signs - 24 hr Temp Pulse Resp BP BP Pulse Ox 11/18/24 08:00 96.9 F 93 H 24 163/76 94 L 11/18/24 07:21 62 18 97 11/18/24 04:00 96.9 F 82 21 128/61 97 11/18/24 01:20 62 18 98 11/18/24 00:00 96.8 F 71 24 164/68 96 11/17/24 21:10 77 18 95 11/17/24 20:14 97.1 F 82 28 H 192/80 97 11/17/24 19:10 87 21 11/17/24 19:03 63 22 94 L 11/17/24 18:31 70 23 154/88 94 L 11/17/24 18:01 66 21 159/53 98 11/17/24 17:31 64 16 160/66 97 11/17/24 17:15 69 18 162/92 97 11/17/24 17:12 82 L 11/17/24 17:00 61 20 148/86 96 11/17/24 16:50 67 17 96 11/17/24 16:41 66 20 96 11/17/24 16:01 66 28 H 148/62 97 11/17/24 15:46 61 20 99 11/17/24 15:31 60 21 147/58 98 11/17/24 15:29 41 H 155/69 93 L 11/17/24 15:27 98.3 F 63 24 147/58 89 L Pain Assessment - Last Documented Pain Intensity 0 Intake and Output: Intake & Output 11/15/24 11/16/24 11/17/24 11/18/24 11:59 11:59 11:59 11:59 Intake Total 600 Output Total 700 Balance -100 Weight 108.4 kg Lab Results: Lab Results-Last 24 Hours 11/17/24 11/17/24 11/17/24 Range/Units 16:54 16:54 16:54 WBC (3.98-10.04) x10^3/uL RBC (3.93-5.22) x10^6/uL Hgb (11.2-15.7) g/dL Hct (34.1-44.9) % MCV (79.4-94.8) fL MCH (25.6-32.2) pg MCHC (32.2-35.5) g/dL RDW (11.7-14.4) % Plt Count (182-369) x10^3/uL MPV (9.4-12.3) fL Gran % (34.0-71.1) % Immature Gran % (Auto) (0.001-0.429) % Nucleat RBC Rel Count (0.00-0.2) % Eos # (Auto) (0.04-0.36) x10^3/uL Immature Gran # (Auto) (0.001-0.031) x10^3u/L Absolute Lymphs (auto) (1.18-3.74) x10^3/uL Absolute Monos (auto) (0.24-0.86) x10^3/uL Absolute Nucleated RBC (0.00-0.012) x10^3u/L Lymphocytes % (19.3-51.7) % Monocytes % (4.7-12.5) % Eosinophils % (0.7-5.8) % Basophils % (0.1-1.2) % Absolute Granulocytes (1.56-6.13) x10^3/uL Basophils # (0.01-0.08) x10^3/uL D-Dimer 0.38 (0.0-0.50) mg/L Sodium 141 (135-145) mmol/L Potassium 3.4 L (3.5-5.1) mmol/L Chloride 98 (98-107) mmol/L Carbon Dioxide 32 H (22-30) mmol/L Anion Gap 13.9 (5-15) MEQ/L BUN 15 (7-17) mg/dL Creatinine 0.83 (0.52-1.04) mg/dL Estimated GFR 74.9 ML/MIN Glucose 81 (74-106) mg/dL POC Glucometer (74 to 106) mg/dL Lactic Acid (0.4-2.0) Calcium 10.1 (8.4-10.2) mg/dL Magnesium 1.3 L (1.6-2.3) mg/dL Total Bilirubin 0.40 (0.2-1.3) mg/dL AST 30 (14-36) U/L ALT 22 (0-35) U/L Alkaline Phosphatase 84 (38-126) U/L Troponin I 0.013 (0.000-0.033) ng/mL NT-Pro-B Natriuret Pep 948 (<300) pg/mL Serum Total Protein 6.5 (6.3-8.2) g/dL Albumin 4.1 (3.5-5.0) g/dL Influenza Type A Ag (NEGATIVE) Influenza Type B Ag (NEGATIVE) RSV (PCR) (NEGATIVE) SARS-CoV-2 (PCR) (NEGATIVE) 11/17/24 11/17/24 11/17/24 Range/Units 17:00 17:00 17:10 WBC 8.6 (3.98-10.04) x10^3/uL RBC 4.00 (3.93-5.22) x10^6/uL Hgb 11.5 (11.2-15.7) g/dL Hct 35.6 (34.1-44.9) % MCV 89.0 (79.4-94.8) fL MCH 28.8 (25.6-32.2) pg MCHC 32.3 (32.2-35.5) g/dL RDW 14.1 (11.7-14.4) % Plt Count 224 (182-369) x10^3/uL MPV 11.5 (9.4-12.3) fL Gran % 69.8 (34.0-71.1) % Immature Gran % (Auto) 0.6 H (0.001-0.429) % Nucleat RBC Rel Count 0.0 (0.00-0.2) % Eos # (Auto) 0.06 (0.04-0.36) x10^3/uL Immature Gran # (Auto) 0.05 H (0.001-0.031) x10^3u/L Absolute Lymphs (auto) 1.76 (1.18-3.74) x10^3/uL Absolute Monos (auto) 0.68 (0.24-0.86) x10^3/uL Absolute Nucleated RBC 0.00 (0.00-0.012) x10^3u/L Lymphocytes % 20.6 (19.3-51.7) % Monocytes % 7.9 (4.7-12.5) % Eosinophils % 0.7 (0.7-5.8) % Basophils % 0.4 (0.1-1.2) % Absolute Granulocytes 5.98 (1.56-6.13) x10^3/uL Basophils # 0.03 (0.01-0.08) x10^3/uL D-Dimer (0.0-0.50) mg/L Sodium (135-145) mmol/L Potassium (3.5-5.1) mmol/L Chloride (98-107) mmol/L Carbon Dioxide (22-30) mmol/L Anion Gap (5-15) MEQ/L BUN (7-17) mg/dL Creatinine (0.52-1.04) mg/dL Estimated GFR ML/MIN Glucose (74-106) mg/dL POC Glucometer (74 to 106) mg/dL Lactic Acid 2.0 (0.4-2.0) Calcium (8.4-10.2) mg/dL Magnesium (1.6-2.3) mg/dL Total Bilirubin (0.2-1.3) mg/dL AST (14-36) U/L ALT (0-35) U/L Alkaline Phosphatase (38-126) U/L Troponin I (0.000-0.033) ng/mL NT-Pro-B Natriuret Pep (<300) pg/mL Serum Total Protein (6.3-8.2) g/dL Albumin (3.5-5.0) g/dL Influenza Type A Ag NEGATIVE (NEGATIVE) Influenza Type B Ag NEGATIVE (NEGATIVE) RSV (PCR) NEGATIVE (NEGATIVE) SARS-CoV-2 (PCR) NEGATIVE (NEGATIVE) 11/17/24 11/17/24 11/18/24 Range/Units 19:40 22:14 01:25 WBC (3.98-10.04) x10^3/uL RBC (3.93-5.22) x10^6/uL Hgb (11.2-15.7) g/dL Hct (34.1-44.9) % MCV (79.4-94.8) fL MCH (25.6-32.2) pg MCHC (32.2-35.5) g/dL RDW (11.7-14.4) % Plt Count (182-369) x10^3/uL MPV (9.4-12.3) fL Gran % (34.0-71.1) % Immature Gran % (Auto) (0.001-0.429) % Nucleat RBC Rel Count (0.00-0.2) % Eos # (Auto) (0.04-0.36) x10^3/uL Immature Gran # (Auto) (0.001-0.031) x10^3u/L Absolute Lymphs (auto) (1.18-3.74) x10^3/uL Absolute Monos (auto) (0.24-0.86) x10^3/uL Absolute Nucleated RBC (0.00-0.012) x10^3u/L Lymphocytes % (19.3-51.7) % Monocytes % (4.7-12.5) % Eosinophils % (0.7-5.8) % Basophils % (0.1-1.2) % Absolute Granulocytes (1.56-6.13) x10^3/uL Basophils # (0.01-0.08) x10^3/uL D-Dimer (0.0-0.50) mg/L Sodium (135-145) mmol/L Potassium (3.5-5.1) mmol/L Chloride (98-107) mmol/L Carbon Dioxide (22-30) mmol/L Anion Gap (5-15) MEQ/L BUN (7-17) mg/dL Creatinine (0.52-1.04) mg/dL Estimated GFR ML/MIN Glucose (74-106) mg/dL POC Glucometer 261 H (74 to 106) mg/dL Lactic Acid (0.4-2.0) Calcium (8.4-10.2) mg/dL Magnesium (1.6-2.3) mg/dL Total Bilirubin (0.2-1.3) mg/dL AST (14-36) U/L ALT (0-35) U/L Alkaline Phosphatase (38-126) U/L Troponin I < 0.012 < 0.012 (0.000-0.033) ng/mL NT-Pro-B Natriuret Pep (<300) pg/mL Serum Total Protein (6.3-8.2) g/dL Albumin (3.5-5.0) g/dL Influenza Type A Ag (NEGATIVE) Influenza Type B Ag (NEGATIVE) RSV (PCR) (NEGATIVE) SARS-CoV-2 (PCR) (NEGATIVE) 11/18/24 11/18/24 11/18/24 Range/Units 01:25 01:25 01:30 WBC 7.0 (3.98-10.04) x10^3/uL RBC 3.91 L (3.93-5.22) x10^6/uL Hgb 11.1 L (11.2-15.7) g/dL Hct 34.9 (34.1-44.9) % MCV 89.3 (79.4-94.8) fL MCH 28.4 (25.6-32.2) pg MCHC 31.8 L (32.2-35.5) g/dL RDW 14.0 (11.7-14.4) % Plt Count 188 (182-369) x10^3/uL MPV 11.4 (9.4-12.3) fL Gran % 85.5 H (34.0-71.1) % Immature Gran % (Auto) 0.4 (0.001-0.429) % Nucleat RBC Rel Count 0.0 (0.00-0.2) % Eos # (Auto) 0.04 (0.04-0.36) x10^3/uL Immature Gran # (Auto) 0.03 (0.001-0.031) x10^3u/L Absolute Lymphs (auto) 0.84 L (1.18-3.74) x10^3/uL Absolute Monos (auto) 0.10 L (0.24-0.86) x10^3/uL Absolute Nucleated RBC 0.00 (0.00-0.012) x10^3u/L Lymphocytes % 12.0 L (19.3-51.7) % Monocytes % 1.4 L (4.7-12.5) % Eosinophils % 0.6 L (0.7-5.8) % Basophils % 0.1 (0.1-1.2) % Absolute Granulocytes 5.99 (1.56-6.13) x10^3/uL Basophils # 0.01 (0.01-0.08) x10^3/uL D-Dimer (0.0-0.50) mg/L Sodium 137 (135-145) mmol/L Potassium 4.1 D (3.5-5.1) mmol/L Chloride 96 L (98-107) mmol/L Carbon Dioxide 28 (22-30) mmol/L Anion Gap 18.3 H (5-15) MEQ/L BUN 18 H (7-17) mg/dL Creatinine 0.80 (0.52-1.04) mg/dL Estimated GFR 78.2 ML/MIN Glucose 295 H (74-106) mg/dL POC Glucometer (74 to 106) mg/dL Lactic Acid (0.4-2.0) Calcium 9.4 (8.4-10.2) mg/dL Magnesium 1.4 L (1.6-2.3) mg/dL Total Bilirubin 0.40 (0.2-1.3) mg/dL AST 37 H (14-36) U/L ALT 27 (0-35) U/L Alkaline Phosphatase 84 (38-126) U/L Troponin I (0.000-0.033) ng/mL NT-Pro-B Natriuret Pep 756 (<300) pg/mL Serum Total Protein 6.8 (6.3-8.2) g/dL Albumin 4.1 (3.5-5.0) g/dL Influenza Type A Ag (NEGATIVE) Influenza Type B Ag (NEGATIVE) RSV (PCR) (NEGATIVE) SARS-CoV-2 (PCR) (NEGATIVE) 11/18/24 Range/Units 07:59 WBC (3.98-10.04) x10^3/uL RBC (3.93-5.22) x10^6/uL Hgb (11.2-15.7) g/dL Hct (34.1-44.9) % MCV (79.4-94.8) fL MCH (25.6-32.2) pg MCHC (32.2-35.5) g/dL RDW (11.7-14.4) % Plt Count (182-369) x10^3/uL MPV (9.4-12.3) fL Gran % (34.0-71.1) % Immature Gran % (Auto) (0.001-0.429) % Nucleat RBC Rel Count (0.00-0.2) % Eos # (Auto) (0.04-0.36) x10^3/uL Immature Gran # (Auto) (0.001-0.031) x10^3u/L Absolute Lymphs (auto) (1.18-3.74) x10^3/uL Absolute Monos (auto) (0.24-0.86) x10^3/uL Absolute Nucleated RBC (0.00-0.012) x10^3u/L Lymphocytes % (19.3-51.7) % Monocytes % (4.7-12.5) % Eosinophils % (0.7-5.8) % Basophils % (0.1-1.2) % Absolute Granulocytes (1.56-6.13) x10^3/uL Basophils # (0.01-0.08) x10^3/uL D-Dimer (0.0-0.50) mg/L Sodium (135-145) mmol/L Potassium (3.5-5.1) mmol/L Chloride (98-107) mmol/L Carbon Dioxide (22-30) mmol/L Anion Gap (5-15) MEQ/L BUN (7-17) mg/dL Creatinine (0.52-1.04) mg/dL Estimated GFR ML/MIN Glucose (74-106) mg/dL POC Glucometer 287 H (74 to 106) mg/dL Lactic Acid (0.4-2.0) Calcium (8.4-10.2) mg/dL Magnesium (1.6-2.3) mg/dL Total Bilirubin (0.2-1.3) mg/dL AST (14-36) U/L ALT (0-35) U/L Alkaline Phosphatase (38-126) U/L Troponin I (0.000-0.033) ng/mL NT-Pro-B Natriuret Pep (<300) pg/mL Serum Total Protein (6.3-8.2) g/dL Albumin (3.5-5.0) g/dL Influenza Type A Ag (NEGATIVE) Influenza Type B Ag (NEGATIVE) RSV (PCR) (NEGATIVE) SARS-CoV-2 (PCR) (NEGATIVE) Radiology Exams: Radiology Procedures Category Date Time Status CHEST 1 VIEW (PORTABLE) Stat Exams 11/17/24 15:57 Completed Medications: Medications Generic Name Dose Route Start Last Admin Trade Name Freq PRN Reason Stop Dose Admin Acetaminophen 325 mg 11/17/24 20:24 Acetaminophen 325 Mg Tablet PO 12/17/24 20:23 Q4H PRN PRN PAIN, FEVER, HEADACHE Albuterol Sulfate 2.5 mg 11/17/24 21:04 11/17/24 21:08 Albuterol Sulfate 2.5 Mg/3 Ml [facility] 12/17/24 21:03 2.5 mg Q4H PRN PRN Administration SHORTNESS OF BREATH/WHEEZING Albuterol/Ipratropium 3 ml 11/18/24 01:00 11/18/24 07:17 Ipratropium/Albuterol Sulfate 3 Ml Ampul.[facility] 12/18/24 00:59 3 ml Q6HRT KIKO Administration Amlodipine Besylate 10 mg 11/18/24 10:00 11/18/24 10:46 Amlodipine Besylate 5 Mg Tablet PO 12/18/24 09:59 10 mg DAILY KIKO Administration Aspirin 81 mg 11/18/24 10:00 11/18/24 10:47 Aspirin 81 Mg Tablet.Ec PO 11/26/24 10:01 81 mg DAILY KIKO Administration Methylprednisolone Sodium 0 mg 11/18/24 00:00 11/18/24 06:07 Succinate 40 mg/ Sterile Water IV 12/18/24 00:00 40 mg 1 ml Q6HT KIKO Administration Enoxaparin Sodium 40 mg 11/18/24 10:00 11/18/24 10:48 Enoxaparin Sodium 40 Mg/0.4 Ml Syringe SQ 12/18/24 09:59 40 mg DAILY KIKO Administration Escitalopram Oxalate 10 mg 11/18/24 10:00 11/18/24 10:47 Escitalopram Oxalate 10 Mg Tablet PO 12/18/24 09:59 10 mg DAILY KIKO Administration Fluoxetine HCl 20 mg 11/18/24 22:00 Fluoxetine Hcl 20 Mg Cap PO 12/18/24 21:59 HS KIKO Furosemide 40 mg 11/18/24 10:00 11/18/24 10:48 Furosemide 40 Mg Tablet PO 12/18/24 09:59 40 mg DAILY KIKO Administration Glipizide 10 mg 05/08/25 07:30 11/18/24 08:27 Glipizide 5 Mg Tablet PO 12/18/24 07:29 10 mg BIDAC KIKO Administration Guaifenesin 600 mg 11/17/24 22:00 11/18/24 10:46 Guaifenesin 600 Mg Tablet Er PO 12/17/24 21:59 600 mg BID KIKO Administration Azithromycin 500 mg/ Sodium 250 mls @ 250 mls/hr 11/18/24 10:00 11/18/24 11:16 Chloride IV 12/18/24 09:59 250 mls/hr Q24H10 KIKO Administration Ceftriaxone Sodium 1 gm in 100 mls @ 200 mls/hr 11/18/24 10:00 11/18/24 10:49 Rocephin 1 Gm / 100 Ml Nacl IV 12/18/24 09:59 200 mls/hr Q24H10 KIKO Administration Insulin Glargine 30 unit 11/17/24 22:00 11/17/24 22:45 Insulin Glargine 1 Unit SQ 12/17/24 21:59 30 unit HS KIKO Administration Insulin Human Regular 0 unit 11/17/24 20:14 11/18/24 08:28 Insulin Regular, Human 1 Unit SQ 12/17/24 20:13 7 unit UD PRN Administration HYPERGLYCEMIA Lactobacillus Acidophilus 1 tab 11/18/24 10:00 11/18/24 10:47 Lactobacillus Acidophilus 1 Tab Tablet PO 12/18/24 09:59 1 tab DAILY KIKO Administration Metolazone 5 mg 11/20/24 10:00 Metolazone 2.5 Mg Tablet PO 12/20/24 09:59 Sa@1000 KIKO Metoprolol Tartrate 25 mg 11/17/24 22:00 11/18/24 10:48 Metoprolol Tartrate 25 Mg Tab PO 12/17/24 21:59 25 mg BID KIKO Administration Miscellaneous Information 1 each 11/18/24 07:15 Medication Intervention 1 Each Each 12/18/24 07:14 .RN TO CHECK KIKO Miscellaneous Information 1 each 11/18/24 07:45 Medication Intervention 1 Each Each 12/18/24 07:44 .RN TO CHECK KIKO Ondansetron HCl 4 mg 11/17/24 20:14 Ondansetron Hcl 4 Mg/2 Ml Vial IV 12/17/24 20:13 Q6H PRN PRN NAUSEA/VOMITING Pantoprazole Sodium 40 mg 11/18/24 10:00 11/18/24 10:48 Protonix (Pantoprazole) 40 Mg Tablet PO 12/18/24 09:59 40 mg DAILY KIKO Administration Potassium Chloride 40 meq 11/18/24 10:00 11/18/24 10:47 Potassium Chloride Tab 10 Meq Tab PO 12/18/24 09:59 40 meq DAILY KIKO Administration Fluticasone/Salmeterol 2 puff 11/18/24 07:00 11/18/24 07:20 Fluticasone/Salmeterol 115/21 60 Puff Aer.W.Adap IH 12/18/24 06:59 2 puff BIDRT KIKO Administration Simvastatin 40 mg 11/17/24 22:00 11/17/24 22:47 Simvastatin 20 Mg Tablet PO 12/17/24 21:59 40 mg HS KIKO Administration Discontinued Medications Generic Name Dose Route Start Last Admin Trade Name Freq PRN Reason Stop Dose Admin Albuterol/Ipratropium 3 ml 11/17/24 15:41 11/17/24 15:42 Ipratropium/Albuterol Sulfate 3 Ml Ampul.Neb IH 11/17/24 15:42 3 ml STAT ONE Administration Albuterol/Ipratropium Confirm 11/17/24 15:40 Ipratropium/Albuterol Sulfate 3 Ml Ampul.Neb Administered 11/17/24 15:41 Dose 3 ml IH .STK-MED ONE Methylprednisolone Sodium 0 mg 11/17/24 18:31 11/17/24 18:39 Succinate 125 mg/ Sterile IV 11/17/24 18:32 125 mg Water 2 ml STAT ONE Administration Ceftriaxone Sodium 1 gm in 100 mls @ 200 mls/hr 11/17/24 18:30 11/17/24 19:13 Rocephin 1 Gm / 100 Ml Nacl IV 11/17/24 18:59 Infused STAT ONE Infusion Ceftriaxone Sodium Confirm 11/17/24 18:38 Rocephin 1 Gm / 100 Ml Nacl Administered 11/17/24 18:39 Dose 1 gm in 100 mls @ ud IV .STK-MED ONE Magnesium Oxide 400 mg 11/17/24 18:11 11/17/24 18:20 Magnesium Oxide 400 Mg Tablet PO 11/17/24 18:12 400 mg STAT ONE Administration Magnesium Oxide Confirm 11/17/24 18:19 Magnesium Oxide 400 Mg Tablet Administered 11/17/24 18:20 Dose 400 mg .ROUTE .STK-MED ONE Magnesium Oxide 400 mg 11/18/24 07:47 11/18/24 08:27 Magnesium Oxide 400 Mg Tablet PO 11/18/24 07:48 400 mg STAT ONE Administration Methylprednisolone Sodium Succinate Confirm 11/17/24 18:38 Methylprednis Sod Succ 125 Mg/2 Ml Vial Administered 11/17/24 18:39 Dose 125 mg .ROUTE .STK-MED ONE Methylprednisolone Sodium Succinate Confirm 11/18/24 02:28 Methylprednisolone Sod Suc 40m 40 Mg/Ml Vial Administered 11/18/24 02:29 Dose 40 mg .ROUTE .STK-MED ONE Methylprednisolone Sodium Succinate Confirm 11/18/24 05:51 Methylprednisolone Sod Suc 40m 40 Mg/Ml Vial Administered 11/18/24 05:52 Dose 40 mg .ROUTE .STK-MED ONE Non-Formulary Medication 10 mg 11/17/24 22:00 11/17/24 22:15 Glipizide 10 Mg [Glucotrol 10 Mg] PO 12/17/24 21:59 Not Given BID KIKO Potassium Chloride 10 meq 11/17/24 18:11 11/17/24 18:20 Potassium Chloride Tab 10 Meq Tab PO 11/17/24 18:12 10 meq STAT ONE Administration Potassium Chloride Confirm 11/17/24 18:18 Potassium Chloride Tab 10 Meq Tab Administered 11/17/24 18:19 Dose 10 meq .ROUTE .STK-MED ONE Simvastatin Confirm 11/17/24 22:18 Simvastatin 20 Mg Tablet Administered 11/17/24 22:19 Dose 40 mg .ROUTE .STK-MED ONE Sterile Water Confirm 11/17/24 18:38 Water For Injection,Sterile 10 Ml Vial Administered 11/17/24 18:39 Dose 10 ml IJ .STK-MED ONE Sterile Water Confirm 11/18/24 05:51 Water For Injection,Sterile 10 Ml Vial Administered 11/18/24 05:52 Dose 10 ml IJ .STK-MED ONE Multi-Disciplinary Progress Notes: Multi-Disciplinary Progress Notes 11/17/24 19:28 Respiratory Note by Kenia Valero RT called to bedside for low SpO2. Pt got up to use restroom and SpO2 dropped into the 70s per RN. Upon arrival, SpO2 was 86% on 4L nasal cannula, pt was placed on 10L oxymask and SpO2 increased to 96%. O2 was titrated to 7L per oxymask, SpO2 on 7L was 94%. RNTayla notified. Initialized on 11/17/24 19:28 - END OF NOTE Assessment/Plan (1) COPD exacerbation Current Visit: Yes Status: Acute Assessment & Plan: - Nebs, steroids, antibiotics, advair - Wean O2 as tolerated. - PT eval. - 4LNC- 97%- Baseline 2lNC - CXR reviewed - CBC reviewed Code(s): J44.1 - CHRONIC OBSTRUCTIVE PULMONARY DISEASE W (ACUTE) EXACERBATION (2) Acute bronchitis Current Visit: Yes Status: Acute Qualifiers: Bronchitis organism: unspecified organism Qualified Code(s): J20.9 - Acute bronchitis, unspecified Assessment & Plan: - Antibiotics. Mucinex. 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 Code(s): I10 - ESSENTIAL (PRIMARY) HYPERTENSION (7) Obesity (BMI 30-39.9) Current Visit: Yes Status: Chronic Assessment & Plan: - Advised diet and exercise control Code(s): E66.9 - OBESITY, UNSPECIFIED (8) Low serum potassium Current Visit: No Status: Resolved Assessment & Plan: - resolved VTE: Lovenox PPI: Pantoprazole Next of KIN: Rashida- Jim Jolly [phone] Code status: Full D/C plan: tomorrow Code(s): E87.6 - HYPOKALEMIA
[2024-11-18] MEDS: HUMALOG SQ SCH (17:36)
[2024-11-18] MEDS: HUMALOG SQ PRN (17:37)
[2024-11-18] MEDS: Prozac 20 MG PO SCH (22:33)
[2024-11-19 08:24] LABS: Hematocrit 37.2 % (34.1-44.9); Mean Cell Volume 88.8 fL (79.4-94.8); Mean Corpuscular Hemoglobin 28.6 pg (25.6-32.2); Mean Corpuscular Hgb Concent. 32.3 g/dL (32.2-35.5); Mean Platelet Volume 11.5 fL (9.4-12.3); Platelet Count 239 x10^3/uL (182-369); Red Blood Count 4.19 x10^6/uL (3.93-5.22); White Blood Count 11.1 x10^3/uL (3.98-10.04)
[2024-11-19 08:46] LABS: ALBUMIN 3.8 g/dL (3.5-5.0); ANION GAP 15.5 MEQ/L (5-15); BILIRUBIN,TOTAL 0.4 mg/dL (0.2-1.3); Calcium 9.2 mg/dL (8.4-10.2); Creatinine 1 0.75 mg/dL (0.52-1.04); EST GLOMERULAR FILTRATION RATE 84.5 ML/MIN; MAGNESIUM 1.7 mg/dL (1.6-2.3); Potassium 3.5 mmol/L (3.5-5.1); Total Protein 6.1 g/dL (6.3-8.2)
--- NOTE | 2024-11-19 10:12 | PCM.DS ---
Discharge Summary Date of Admission: 11/17/24 20:09 Date of Discharge: 11/19/24 Admitting Physician: ANA COTTER MD Primary Care Provider: VÍCTOR VEGA Allergies Allergies lisinopril Allergy (Severe, Verified 12/11/22 11:08) Swelling of Face tenecteplase Allergy (Verified 12/11/22 11:08) Swelling of Face ciprofloxacin [From Cipro] Adverse Reaction (Verified 12/11/22 11:08) Hospital Summary - Hospital Course Hospital Course: 11/18/24 The patient is a 74-year-old female with a medical history of COPD (on 2L home oxygen), coronary artery disease status post CABG, hypertension, GERD, diabetes mellitus, and a prior stroke. She presented to the emergency department on 11/17/24 with worsening shortness of breath. On arrival, she was found to be hypoxic with an oxygen saturation of 88% on room air. She had received a Celestone (steroid) injection two days prior due to similar symptoms, but her condition worsened, prompting evaluation. She reported a nonproductive cough but denies fever, chills, hemoptysis, or chest pain. She also has chronic bilateral leg edema, which she states is unchanged.Today, the patient reports feeling much better, and her wheezing has improved. However, she remains on 4L oxygen via nasal cannula with a saturation of 97%, above her baseline of 2L. Management will continue with antibiotics, steroids, Duonebs, Advair, and Mucinex for COPD exacerbation. Discharge will be considered tomorrow if her oxygen requirement can be weaned to baseline. She currently denies any additional concerns. 11/19/24 Pt sitting in chair this AM. Discussed OP Pulm rehab with her and she does not want to do this as she states she does not want to leave her home. She is on 4lNC at 97%. She has increased SOB with ambulation. Lung sounds are clear and labs reviewed with pt. WBC elevated likely 2:2 steroids as CXR negative. Case management to set up O2 at home as baseline is 2lNC and she is now requring 4lNC. Pt reports she has activity intolernece and this is not new as she sits in a chair all day at home. Asked why she does this, and she states she wants to and there is nothing to do. Pt would like to d/c today. Will d/c with antibiotics and steroids. She denies any further concerns at this time. - Vitals & Intake/Output Vital Signs: Vital Signs Temperature 97.9 F 11/19/24 08:00 Pulse Rate 86 11/19/24 08:00 Respiratory Rate 16 11/19/24 08:00 Blood Pressure 136/74 11/19/24 08:00 O2 Sat by Pulse Oximetry 97 11/19/24 08:00 Intake & Output: Intake & Output 11/16/24 11/17/24 11/18/24 11/19/24 11:59 11:59 11:59 11:59 Intake Total 600 1973 Output Total 700 Balance -100 1973 Weight 108.4 kg - Lab Result Diagrams: 11/19/24 08:20 11/19/24 08:08 Lab Results-Last 24 Hrs: Lab Results-Last 24 Hours 11/18/24 11/18/24 11/18/24 Range/Units 12:08 17:08 22:18 WBC (3.98-10.04) x10^3/uL RBC (3.93-5.22) x10^6/uL Hgb (11.2-15.7) g/dL Hct (34.1-44.9) % MCV (79.4-94.8) fL MCH (25.6-32.2) pg MCHC (32.2-35.5) g/dL RDW (11.7-14.4) % Plt Count (182-369) x10^3/uL MPV (9.4-12.3) fL Sodium (135-145) mmol/L Potassium (3.5-5.1) mmol/L Chloride (98-107) mmol/L Carbon Dioxide (22-30) mmol/L Anion Gap (5-15) MEQ/L BUN (7-17) mg/dL Creatinine (0.52-1.04) mg/dL Estimated GFR ML/MIN Glucose (74-106) mg/dL POC Glucometer 304 H 293 H 299 H (74 to 106) mg/dL Calcium (8.4-10.2) mg/dL Magnesium (1.6-2.3) mg/dL Total Bilirubin (0.2-1.3) mg/dL AST (14-36) U/L ALT (0-35) U/L Alkaline Phosphatase (38-126) U/L Serum Total Protein (6.3-8.2) g/dL Albumin (3.5-5.0) g/dL 11/19/24 11/19/24 11/19/24 Range/Units 07:24 08:08 08:20 WBC 11.1 H (3.98-10.04) x10^3/uL RBC 4.19 (3.93-5.22) x10^6/uL Hgb 12.0 (11.2-15.7) g/dL Hct 37.2 (34.1-44.9) % MCV 88.8 (79.4-94.8) fL MCH 28.6 (25.6-32.2) pg MCHC 32.3 (32.2-35.5) g/dL RDW 14.0 (11.7-14.4) % Plt Count 239 (182-369) x10^3/uL MPV 11.5 (9.4-12.3) fL Sodium 140 (135-145) mmol/L Potassium 3.5 (3.5-5.1) mmol/L Chloride 100 (98-107) mmol/L Carbon Dioxide 28 (22-30) mmol/L Anion Gap 15.5 H (5-15) MEQ/L BUN 24 H (7-17) mg/dL Creatinine 0.75 (0.52-1.04) mg/dL Estimated GFR 84.5 ML/MIN Glucose 245 H (74-106) mg/dL POC Glucometer 200 H (74 to 106) mg/dL Calcium 9.2 (8.4-10.2) mg/dL Magnesium 1.7 (1.6-2.3) mg/dL Total Bilirubin 0.40 (0.2-1.3) mg/dL AST 26 (14-36) U/L ALT 23 (0-35) U/L Alkaline Phosphatase 76 (38-126) U/L Serum Total Protein 6.1 L (6.3-8.2) g/dL Albumin 3.8 (3.5-5.0) g/dL Micro Results-Entire Visit: Microbiology 11/17/24 17:05 Blood Culture - Preliminary Blood 11/17/24 16:54 Blood Culture - Preliminary Blood Accuchecks Date 11/19/24 Date 11/18/24 Time 08:18 - Radiology Exams Ordered Rad Exams-Entire Visit: Radiology Procedures Category Date Time Status CHEST 1 VIEW (PORTABLE) Stat Exams 11/17/24 15:57 Completed - Procedures and Test Procedures and Tests throughout Hospitalization: Therapy Orders & Screens 11/17/24 20:14 EKG REPEAT IN AM Comment: Respiratory Therapy Consult ONCE Comment: Reason For Exam: 11/17/24 21:06 Oxygen Nasal Cannula 4 lpm Comment: Diagnosis: COPD 11/18/24 08:08 Qualify for Home Oxygen TODAY Comment: may need increased flow while walking- please eval Diagnosis: COPD Discharge Exam General Appearance: no apparent distress, alert, obese Neurologic Exam: alert, oriented x 3, cooperative, normal mood/affect, nml cerebellar function, sensation nml, No motor deficits Eye Exam: PERRL, EOMI, eyes nml inspection Ears, Nose, Throat Exam: normal ENT inspection, pharynx normal, moist mucous membranes Neck Exam: normal inspection, non-tender, supple, full range of motion Respiratory Exam: normal breath sounds, lungs clear, No respiratory distress Cardiovascular Exam: regular rate/rhythm, normal heart sounds Gastrointestinal/Abdomen Exam: soft, No tenderness, No mass Pelvic Exam: deferred Rectal Exam: deferred Back Exam: normal inspection, normal range of motion, No CVA tenderness, No vertebral tenderness Extremity Exam: normal inspection, normal range of motion Skin Exam: normal color, warm, dry Final Diagnosis/Problem List - Final Discharge Diagnosis/Problem (1) COPD exacerbation Current Visit: Yes Status: Acute Code(s): J44.1 - CHRONIC OBSTRUCTIVE PULMONARY DISEASE W (ACUTE) EXACERBATION (2) Acute bronchitis Current Visit: Yes Status: Acute Code(s): J20.9 - ACUTE BRONCHITIS, UNSPECIFIED (3) Hypoxia Current Visit: Yes Status: Acute Code(s): R09.02 - HYPOXEMIA (4) Hypomagnesemia Current Visit: Yes Status: Acute Code(s): E83.42 - HYPOMAGNESEMIA (5) DM2 (diabetes mellitus, type 2) Current Visit: No Status: Chronic (6) HTN (hypertension) Current Visit: No Status: Chronic Code(s): I10 - ESSENTIAL (PRIMARY) HYPERTENSION (7) Obesity (BMI 30-39.9) Current Visit: Yes Status: Chronic Code(s): E66.9 - OBESITY, UNSPECIFIED (8) Low serum potassium Current Visit: No Status: Resolved Assessment & Plan: (1) COPD exacerbation Current Visit: Yes Status: Acute Assessment & Plan: - Nebs, steroids, antibiotics, advair - Wean O2 as tolerated. - PT eval. - 4LNC- 97%- Baseline 2lNC - CXR reviewed - CBC, CMP reviewed - Refused pulm rehab - D/C with antibiotic and steroid - CM to set up OP O2 of 4lNC Code(s): J44.1 - CHRONIC OBSTRUCTIVE PULMONARY DISEASE W (ACUTE) EXACERBATION (2) Acute bronchitis Current Visit: Yes Status: Acute Qualifiers: Bronchitis organism: unspecified organism Qualified Code(s): J20.9 - Acute bronchitis, unspecified Assessment & Plan: - Antibiotics. Mucinex. - See above COPD plan Code(s): J20.9 - ACUTE BRONCHITIS, UNSPECIFIED (3) Hypoxia Current Visit: Yes Status: Acute Assessment & Plan: - See above plans Code(s): R09.02 - HYPOXEMIA (4) Hypomagnesemia Current Visit: Yes Status: Acute Assessment & Plan: - Mg+ 1.4- replaced- trend - Tele 11/18 - resolved Code(s): E83.42 - HYPOMAGNESEMIA (5) DM2 (diabetes mellitus, type 2) Current Visit: No Status: Chronic Qualifiers: Diabetes mellitus mcc insulin use: with terminal gauger use Diabetes mellitus complication status: without complication Qualified Code(s): E11.9 - Type 2 diabetes mellitus without complications; Z79.4 - intermediate (current) use of insulin Assessment & Plan: - Hold metformin - Accuchecks AC/HS, Humalog s/s - A1C 09/16/24- 7.0- controlled (6) HTN (hypertension) Current Visit: No Status: Chronic Qualifiers: Hypertension type: secondary to endocrine disorders Qualified Code(s): I 15.2 - Hypertension secondary to endocrine disorders Assessment & Plan: - Monitor BP on home regimen. Code(s): I10 - ESSENTIAL (PRIMARY) HYPERTENSION (7) Obesity (BMI 30-39.9) Current Visit: Yes Status: Chronic Assessment & Plan: - Advised diet and exercise control Code(s): E66.9 - OBESITY, UNSPECIFIED (8) Low serum potassium Current Visit: No Status: Resolved Assessment & Plan: - resolved Code(s): E87.6 - HYPOKALEMIA - Discharge Discharge Date: 11/19/24 Disposition: HOME HEALTH SERVICE Condition: Fair Prescriptions: Continue Metformin HCl 500 mg [Glucophage 500 MG] 1,000 mg PO BIDWM Escitalopram Oxalate [Lexapro] 10 mg PO DAILY Aspirin 81 gm Chew [Baby Aspirin 81 mg Chew] 81 mg PO DAILY metOLazone [Metolazone] 5 mg PO WEEKLY Ubidecarenone [Coenzyme Q10] 200 mg PO DAILY Insulin Glargine [Lantus Insulin] 30 unit SQ HS Fluticasone/Umeclidin/Vilanter [Trelegy Ellipta 100-62.5-25] 1 each IH DAILY Albuterol Common Canister [Ventolin Common Canister] 2 puff IH QIDPRN PRN PRN Reason: Shortness Of Breath Albuterol 2.5 mg/3 ml Neb [Proventil 2.5 mg/3 ml Neb] 2.5 mg IH QID Amlodipine Besylate 5 mg [Norvasc 5 mg] 10 mg PO DAILY Atorvastatin Calcium [Lipitor 40Mg] 40 mg PO HS #90 tablet Metoprolol Tartrate 25 mg [Lopressor 25MG Tab] 25 mg PO BID #30 Glipizide 10 mg [Glucotrol 10 MG] 10 mg PO BID #60 tablet Cyanocobalamin 1000 Mcg/ml [Cyanocobalamin B-12 1000 MCG/ML] 1,000 mcg SQ UD Furosemide 20 mg [Lasix 20 mg] 40 mg PO DAILY Omeprazole 20 mg PO DAILY Ondansetron [Ondansetron Odt] 4 mg PO BID PRN PRN Reason: Nausea Potassium Chloride [Klor-Con 10] 40 meq PO DAILY Fluoxetine HCl 10 mg [Prozac 10 mg] 20 tab PO HS Additional Instructions: If you feel Mucinex was helpful you can buy over the counter. When feeling better if you decide you want to go to pul rehab, please discuss with Pulm- Dr. Ventura or PCP as you will need a PFT and then they can refer you for this. Follow up with: VÍCTOR VEGA MD [Primary Care Provider, [facility]]
[2024-11-19 16:36] VITALS: BP 143/64; PULSE 91; RESP 16; TEMP 97.9; O2SAT 93
[2024-11-20] MEDS ORDERED: Zaroxolyn 2.5 MG PO SCH (10:00)
[2024-11-20] MEDS ORDERED: Cyanocobalamin B-12 1000 MCG/ML SQ SCH (10:00)
== END 2024-11-19 16:40 | disposition home health service (06) ==
LOC: ED 15:27 → MED SURG 20:09
PROVIDERS: ADMIT Internal Medicine; ATTEND Internal Medicine
DX: J44.1 Chronic obstructive pulmonary disease with (acute) exacerbation (principal); J20.9 Acute bronchitis, unspecified; R09.02 Hypoxemia; E83.42 Hypomagnesemia; E11.9 Type 2 diabetes mellitus without complications; I10 Essential (primary) hypertension; E66.9 Obesity, unspecified; E87.6 Hypokalemia; E78.5 Hyperlipidemia, unspecified; Z79.899 Other long term (current) drug therapy; Z99.81 Dependence on supplemental oxygen; Z95.0 Presence of cardiac pacemaker
CPT/HCPCS: 0241U; 36415; 71045; 80053; 82947; 83605; 83735; 83880; 84484; 85025; 85027; 85379; 87040; 93005; 93041; 93268; 94640; 94760; 94762; 96374; 99291; G0378; Q3014; 99285; J0456; J0696; J1650; J1815; J1817; J2919; J7609; A9270-GY